=== PATIENT | male | born 1955 | race Caucasian/White ===

== ENCOUNTER 2020-10-31 09:58 | Inpatient (IN) | payer OTHER ==
[2020-10-31 10:38] LABS: Absolute Lymphocytes (CBC) 23.8 K/uL (0.7-4.9); Basophils % 0.4 % (0-1.3); Hematocrit 47.4 % (39.6-49.0); Lymphocytes % 85.4 % (15.3-44.8); MPV 10.2 fL (7.6-11.3); RBC Red Blood Cell Count 5.13 M/uL (4.33-5.43)
[2020-10-31 10:39] LABS: Protime INR 1.01
[2020-10-31 10:52] LABS: ALT/SGPT 58 U/L (12-78); AST/SGOT 35 U/L (15-37); Alkaline Phosphatase 135 U/L (45-117); BUN Blood Urea Nitrogen 22 mg/dL (7-18); Bicarbonate 22 mmol/L (21-32); Bilirubin Direct 0.1 mg/dL (0-0.2); Bilirubin Total 0.7 mg/dL (0.2-1.0); Glucose Level 318 mg/dL (74-106); Magnesium 2.1 mg/dL (1.8-2.4); NT PRO-BNP 64 pg/mL (<125); Potassium 4.4 mmol/L (3.5-5.1); Protein, Total 7.9 g/dL (6.4-8.2); Sodium Level 136 mmol/L (136-145); Troponin (Emerg Dept Use Only) < 0.02 ng/mL (0.0-0.045)
[2020-10-31] MEDS ORDERED: CLOPIDOGREL 75 MG TABLET ONE (11:00)
[2020-10-31] MEDS ORDERED: ASPIRIN 81 MG CHEWABLE TABLET ONE (11:00)
[2020-10-31] MEDS ORDERED: FENTANYL CITR 100 MCG/2 ML ONE (11:02)
[2020-10-31] MEDS ORDERED: ONDANSETRON 4 MG/2 ML VIAL ONE (11:02)
--- NOTE | 2020-10-31 11:31 | RAD REPORT ---
EXAM DESCRIPTION: Anitha Single View10/31/2020 11:16 am CLINICAL HISTORY: Chest pain COMPARISON: none FINDINGS: The lungs appear clear of acute infiltrate. The heart is normal size IMPRESSION: No acute abnormalities displayed
[2020-10-31 11:48] LABS: Blood Morphology Comment NOT SEEN (NOT SEEN); Platelet Estimate ADEQ
[2020-10-31] MEDS ORDERED: NITROGLYCERIN 1 GM PKT TD ONE (11:49)
--- NOTE | 2020-10-31 13:22 | ER ---
Nurse's Notes [facility] Name: Anant Torres Age: 65 yrs Sex: Male : 1955 Arrival Date: 10/31/2020 Time: 10:01 Bed 8 Private MD: Diagnosis: Unstable angina;Chest pain on breathing Presentation: 10/31 10:02 Chief complaint: Patient states: L sided CP for 1 week. Reports SOB. No fever. ll1 Coronavirus screen: Client denies travel out of the [place] in the last 14 days. difficulty breathing, Client presents with at least one sign or symptom that may indicate coronavirus-19. Standard/surgical mask placed on the client. Ebola Screen: Patient denies travel to an Ebola-affected area in the 21 days before illness onset. Initial Sepsis Screen: Does the patient meet any 2 criteria? HR > 90 bpm. No. Patient's initial sepsis screen is negative. Does the patient have a suspected source of infection? Yes: Productive cough/pneumonia. Risk Assessment: Do you want to hurt yourself or someone else? Patient reports no desire to harm self or others. Onset of symptoms was October 24, 2020. 10:02 Method Of Arrival: Wheelchair ll1 10:02 Acuity: RANDELL 3 ll1 Historical: - Allergies: 10:04 Morphine; ll1 - Home Meds: 10:15 None [Active]; aa5 - PMHx: 10:04 Hypertension; COPD; heart disease; PTSD; ll1 10:15 Diabetes; aa5 - PSHx: 10:15 Heart stents; aa5 - Immunization history:: Adult Immunizations up to date. - Social history:: Smoking status: Patient/guardian denies using tobacco, the patient reports quitting approximately 15 years ago. Screenin:02 Abuse screen: Denies threats or abuse. Nutritional screening: No deficits noted. aa5 Tuberculosis screening: No symptoms or risk factors identified. Fall Risk IV access (20 points). Total Deleon Fall Scale indicates No Risk (0-24 pts). Assessment: 10:10 General: Appears comfortable, Behavior is calm, cooperative. Pain: Complains of pain in aa5 mid-sternal area Pain does not radiate. Pain currently is 7 out of 10 on a pain scale. Quality of pain is described as pressure, Pain began 1 week ago Is continuous. Neuro: Level of Consciousness is awake, alert, obeys commands, Oriented to person, place, time, situation. Cardiovascular: Reports chest pain, Reports baseline SOB, Hx of COPD Heart tones S1 S2 present Rhythm is regular. Respiratory: Airway is patent Respiratory effort is even, unlabored, Respiratory pattern is regular, symmetrical, Breath sounds are clear bilaterally. Denies cough. GI: Abdomen is round. : No signs and/or symptoms were reported regarding the genitourinary system. EENT: No signs and/or symptoms were reported regarding the EENT system. Derm: Skin is pink, warm \T\ dry. Musculoskeletal: Range of motion: intact in all extremities. 10:58 Reassessment: x-ray at bedside . aa5 11:30 Reassessment: Pt reports symptoms have not improved now c/o pain to left arm, MD was aa5 notified. . 12:00 Reassessment: Patient is alert, oriented x 3, equal unlabored respirations, skin aa5 warm/dry/pink. Patient states symptoms have not improved. 12:00 Pain: Pain currently is 10 out of 10 on a pain scale. aa5 14:00 Reassessment: Patient is alert, oriented x 3, equal unlabored respirations, skin aa5 warm/dry/pink. Patient states feeling better. Patient states symptoms have improved. Pain: Pain currently is 3 out of 10 on a pain scale. 15:00 Reassessment: Pt resting in bed with eyes closed, respirations even and unlabored, skin aa5 is pink/warm/dry. . 16:40 Reassessment: Patient is alert, oriented x 3, equal unlabored respirations, skin aa5 warm/dry/pink. Vital Signs: 10:02 BP 149 / 101; Pulse 96; Resp 20; Temp 97.6; Pulse Ox 96% on R/A; Pain 7/10; ll1 10:55 BP 142 / 100; Pulse 96; Resp 18 S; Temp 98.3(O); Pulse Ox 97% on R/A; mh5 11:32 BP 146 / 98; Pulse 89; Resp 20 S; Pulse Ox 93% on R/A; aa5 12:03 BP 131 / 95; Pulse 88; Resp 16; Temp 98.0; Pulse Ox 91% on 2 lpm NC; mh5 12:51 BP 126 / 91; Pulse 93; Resp 15; Temp 98.0(O); Pulse Ox 93% on 2 lpm NC; mh5 14:00 BP 128 / 91; Pulse 93; Resp 14; Pulse Ox 93% on 2 lpm NC; sv 15:30 BP 131 / 99; Pulse 98; Resp 14 S; Temp 98.0(TE); Pulse Ox 92% on 2 lpm NC; aa5 ED Course: 10:01 Patient arrived in ED. ds1 10:02 Martine Garcia, STEPHEN is Primary Nurse. aa5 10:02 Arm band placed on Patient placed in an exam room, on a stretcher. ll1 10:04 Triage completed. ll1 10:04 Gustavo Rangel MD is Attending Physician. kdr 10:10 Patient has correct armband on for positive identification. Placed in gown. Bed in low aa5 position. Call light in reach. Side rails up X 1. monologist on. Pulse ox on. NIBP on. 10:10 Patient maintains SpO2 saturation greater than 95% on room air. aa5 10:35 Initial lab(s) drawn, by tn, sent to lab. EKG done, by ED staff, reviewed by Gustavo Rangel MD. Inserted saline lock: 20 gauge in right antecubital area, using aseptic technique. Blood collected. 11:16 XRAY Chest (1 view) In Process Unspecified. EDMS 12:26 Troponin (emerg Dept Use Only) Sent. dh3 12:56 EKG done, by ED staff, reviewed by Gustavo Rangel MD. dh3 14:17 Moses Cordero MD is Hospitalizing Provider. kdr 16:42 No provider procedures requiring assistance completed. Patient admitted, IV remains in aa5 place. Administered Medications: 10:55 Drug: Zofran (Ondansetron) 4 mg Route: IVP; Site: right antecubital; aa5 11:05 Follow up: Response: No adverse reaction aa5 10:55 Drug: fentaNYL (PF) 25 mcg Route: IVP; Site: right antecubital; aa5 11:05 Follow up: Response: No adverse reaction aa5 10:56 Drug: Aspirin Chewable Tablet 324 mg Route: PO; aa5 11:30 Follow up: Response: No adverse reaction aa5 10:56 Drug: PlaVIX 300 mg Route: PO; aa5 11:30 Follow up: Response: No adverse reaction aa5 11:33 Drug: Nitro-Bid Ointment 2 % 1 inches Route: Transdermal; Site: anterior chest wall; aa5 Outcome: 13:22 Discharge ordered by . kdr 14:18 Decision to Hospitalize by Provider. kdr 16:41 Admitted to Tele accompanied by tech, via wheelchair, room 212, with chart, Report aa5 called to STEPHEN Rojo 16:41 Condition: stable 16:41 Instructed on the need for admit, Demonstrated understanding of instructions. 16:54 Patient left the ED. aa5 Signatures: Dispatcher [employer] EDIliana Doan RN RN Gustavo Rangel MD MD [facility] Marjorie Odom ds1 Martine Garcia RN RN 5 Trista Alvarado [facility] Tamara Varela 3 Ayala Pinzon RN RN ll1 Corrections: (The following items were deleted from the chart) 11:05 10:55 BP 142 / 100; Pulse 96bpm; Resp 18bpm; Spontaneous; Pulse Ox 97% RA; 5 5 11:05 11:02 BP 142 / 100; Pulse 91bpm; Resp 16bpm; Pulse Ox 91% RA; Temp 98.3F Oral; [place] [id number] 12:58 12:51 BP 126 / 91; Pulse 93bpm; Resp 15bpm; Pulse Ox 93% 2 lpm Nasal Cannula; [facility]
--- NOTE | 2020-10-31 13:22 | EDPHYS ---
Physician Documentation [facility] Name: Anant Torres Age: 65 yrs Sex: Male : 1955 Arrival Date: 10/31/2020 Time: 10:01 Bed 8 Private MD: ED Physician Gustavo Rangel HPI: 10/31 10:42 This 65 yrs old Male presents to ER via Wheelchair with complaints of Chest kdr Pain. 10:42 The patient or guardian reports chest pain that is located primarily in the anterior kdr chest wall, left. Onset: gradually, 5 day(s) ago. The pain radiates to the left shoulder, left neck, left jaw. Associated signs and symptoms: Pertinent positives: nausea, Pertinent negatives: cough. The chest pain is described as aching. Duration: The patient or guardian reports multiple episodes, that are intermittent, that wax and wane, with no pattern. Severity of pain: At its worst the pain was moderate severe just prior to arrival. The patient has not experienced similar symptoms in the past. The patient has not recently seen a physician. Historical: - Allergies: 10:04 Morphine; ll1 - Home Meds: 10:15 None [Active]; aa5 - PMHx: 10:04 Hypertension; COPD; heart disease; PTSD; ll1 10:15 Diabetes; aa5 - PSHx: 10:15 Heart stents; aa5 - Immunization history:: Adult Immunizations up to date. - Social history:: Smoking status: Patient/guardian denies using tobacco, the patient reports quitting approximately 15 years ago. ROS: 10:42 Constitutional: Negative for fever, chills, and weight loss, Eyes: Negative for injury, kdr pain, redness, and discharge, ENT: Negative for injury, pain, and discharge, Neck: Negative for injury, pain, and swelling, Respiratory: Negative for shortness of breath, cough, wheezing, and pleuritic chest pain, Abdomen/GI: Negative for abdominal pain, nausea, vomiting, diarrhea, and constipation, Back: Negative for injury and pain, : Negative for injury, bleeding, discharge, and swelling, MS/Extremity: Negative for injury and deformity, Skin: Negative for injury, rash, and discoloration, Neuro: Negative for headache, weakness, numbness, tingling, and seizure activity. Psych: Negative for depression, anxiety, suicide ideation, homicidal ideation, and hallucinations, Allergy/Immunology: Negative for hives, rash, and allergies, Endocrine: Negative for neck swelling, polydipsia, polyuria, polyphagia, and marked weight changes, Hematologic/Lymphatic: Negative for swollen nodes, abnormal bleeding, and unusual bruising. 10:42 Cardiovascular: Positive for chest pain, Negative for edema, orthopnea, palpitations, paroxysmal nocturnal dyspnea. Exam: 10:16 ECG was reviewed by the Attending Physician. kdr 10:42 Constitutional: This is a well developed, well nourished patient who is awake, alert, kdr and in no acute distress. Head/Face: Normocephalic, atraumatic. Eyes: Pupils equal round and reactive to light, extra-ocular motions intact. Lids and lashes normal. Conjunctiva and sclera are non-icteric and not injected. Cornea within normal limits. Periorbital areas with no swelling, redness, or edema. Neck: Trachea midline, no thyromegaly or masses palpated, and no cervical lymphadenopathy. Supple, full range of motion without nuchal rigidity, or vertebral point tenderness. No Meningismus. Chest/axilla: Normal chest wall appearance and motion. Nontender with no deformity. No lesions are appreciated. Cardiovascular: Regular rate and rhythm with a normal S1 and S2. No gallops, murmurs, or rubs. Normal PMI, no JVD. No pulse deficits. Respiratory: Lungs have equal breath sounds bilaterally, clear to auscultation and percussion. No rales, rhonchi or wheezes noted. No increased work of breathing, no retractions or nasal flaring. Back: No spinal tenderness. No costovertebral tenderness. Full range of motion. Skin: Warm, dry with normal turgor. Normal color with no rashes, no lesions, and no evidence of cellulitis. MS/ Extremity: Pulses equal, no cyanosis. Neurovascular intact. Full, normal range of motion. Neuro: Awake and alert, GCS 15, oriented to person, place, time, and situation. Cranial nerves II-XII grossly intact. Motor strength 5/5 in all extremities. Sensory grossly intact. Cerebellar exam normal. Normal gait. Psych: Awake, alert, with orientation to person, place and time. Behavior, mood, and affect are within normal limits. 10:42 Abdomen/GI: Inspection: obese Vital Signs: 10:02 BP 149 / 101; Pulse 96; Resp 20; Temp 97.6; Pulse Ox 96% on R/A; Pain 7/10; ll1 10:55 BP 142 / 100; Pulse 96; Resp 18 S; Temp 98.3(O); Pulse Ox 97% on R/A; mh5 11:32 BP 146 / 98; Pulse 89; Resp 20 S; Pulse Ox 93% on R/A; aa5 12:03 BP 131 / 95; Pulse 88; Resp 16; Temp 98.0; Pulse Ox 91% on 2 lpm NC; mh5 12:51 BP 126 / 91; Pulse 93; Resp 15; Temp 98.0(O); Pulse Ox 93% on 2 lpm NC; mh5 14:00 BP 128 / 91; Pulse 93; Resp 14; Pulse Ox 93% on 2 lpm NC; sv 15:30 BP 131 / 99; Pulse 98; Resp 14 S; Temp 98.0(TE); Pulse Ox 92% on 2 lpm NC; aa5 MDM: 13:22 Patient medically screened. kdr 13:22 Data reviewed: vital signs, nurses notes, lab test result(s), EKG, radiologic studies. kdr Counseling: I had a detailed discussion with the patient and/or guardian regarding: the historical points, exam findings, and any diagnostic results supporting the discharge/admit diagnosis, lab results, radiology results, the need for outpatient follow up. 14:19 ED course: The patient was stable in the ED. Despite two sets of negative enzymes, the [facility] patient pain was improving with NTG - will admit for r/o. 10/31 10:06 Order name: Basic Metabolic Panel; Complete Time: 11: [facility] 10/31 10:06 Order name: CBC with Diff; Complete Time: 13:17 [facility] 10/31 10:06 Order name: LFT's; Complete Time: : [facility] 10/31 10:06 Order name: Magnesium; Complete Time: : [facility] 10/31 10:06 Order name: NT PRO-BNP; Complete Time: 11: [facility] 10/31 10:06 Order name: PT-INR; Complete Time: : [facility] 10/31 10:06 Order name: Troponin (emerg Dept Use Only); Complete Time: : [facility] 10/31 10:51 Order name: Manual Differential; Complete Time: 13:17 EDMS 10/31 12:06 Order name: Troponin (emerg Dept Use Only); Complete Time: 13:17 kdr 10/31 14:11 Order name: Basic Metabolic Panel EDAR 10/31 14:11 Order name: Basic Metabolic Panel EDAR 10/31 14:11 Order name: CBC with Automated Diff EDMS 10/31 14:11 Order name: CBC with Automated Diff EDMS 10/31 14:11 Order name: Lipid Profile EDAR 10/31 10:06 Order name: XRAY Chest (1 view); Complete Time: 13:17 kdr 10/31 10:06 Order name: EKG; Complete Time: 10:07 kdr 10/31 14:11 Order name: CONS Physician Consult EDAR 10/31 14:11 Order name: Heart Healthy EDAR 10/31 14:11 Order name: Echo with Doppler EDAR 10/31 14:11 Order name: Lipid Profile EDAR 10/31 14:11 Order name: Troponin I EDAR 10/31 14:11 Order name: Troponin I EDAR 10/31 14:11 Order name: Troponin I EDAR 10/31 14:13 Order name: COVID-19 hb 10/31 15:50 Order name: SARS-COV-2 RT PCR EDAR 10/31 10:06 Order name: Cardiac monitoring; Complete Time: 10:34 kdr 10/31 10:06 Order name: EKG - Nurse/Tech; Complete Time: 10:34 kdr 10/31 10:06 Order name: IV Saline Lock; Complete Time: 10:34 [facility] 10/31 10:06 Order name: Labs collected and sent; Complete Time: 10:34 kdr 10/31 10:06 Order name: O2 Per Protocol; Complete Time: 10:34 kdr 10/31 10:06 Order name: O2 Sat Monitoring; Complete Time: 10:35 kdr 10/31 12:06 Order name: EKG - Nurse/Tech; Complete Time: 12:57 kdr 10/31 14:11 Order name: EKG Electrocardiogram EDAR 10/31 14:11 Order name: EKG Electrocardiogram EDAR 10/31 14:34 Order name: Diet Ada 1800 Xavi; Complete Time: 14:34 aa5 EC:40 Rate is 87 beats/min. Rhythm is regular, Normal Sinus Rhythm with No ectopy. QRS [place] kdr is Normal. NC interval is normal. QRS interval is normal. Clinical impression: NSR w/ Non-specific ST/T Changes. 13:19 Rate is 90 beats/min. Rhythm is regular, Sinus Rhythm with No ectopy. QRS [place] is kdr Normal. NC interval is normal. QRS interval is normal. QT interval is normal. Clinical impression: NSR w/ Non-specific ST/T Changes and No significant change from first EKG. Administered Medications: 10:55 Drug: Zofran (Ondansetron) 4 mg Route: IVP; Site: right antecubital; aa5 11:05 Follow up: Response: No adverse reaction aa5 10:55 Drug: fentaNYL (PF) 25 mcg Route: IVP; Site: right antecubital; aa5 11:05 Follow up: Response: No adverse reaction aa5 10:56 Drug: Aspirin Chewable Tablet 324 mg Route: PO; aa5 11:30 Follow up: Response: No adverse reaction aa5 10:56 Drug: PlaVIX 300 mg Route: PO; aa5 11:30 Follow up: Response: No adverse reaction aa5 11:33 Drug: Nitro-Bid Ointment 2 % 1 inches Route: Transdermal; Site: anterior chest wall; aa5 Disposition: 10/31/20 14:18 Hospitalization ordered by Moses Cordero for Observation. Preliminary diagnosis are Unstable angina, Chest pain on breathing. - Bed requested for Telemetry/MedSurg (observation). - Status is Observation. aa5 - Condition is Fair. - Problem is new. - Symptoms have improved. Signatures: Dispatcher [employer] EDMS Gustavo Rangel MD MD kdr Martine Garcia, RN RN aa5 Milvia Youngblood Lynsay, RN RN ll1 Corrections: (The following items were deleted from the chart) 14:14 13:22 10/31/2020 13:22 Discharged to Home. Impression: Chest pain, unspecified. kdr Condition is Fair. Forms are Medication Reconciliation Form, Thank You Letter, Antibiotic Education, Prescription Opioid Use. Follow up: Private Physician; When: 2 - 3 days; Reason: If symptoms return, Further diagnostic work-up, Recheck today's complaints, Continuance of care, Re-evaluation by your physician. Problem is an ongoing problem. Symptoms have improved. kdr 16:07 14:18 Hospitalization Ordered by Moses Cordero MD for Observation. Preliminary eb diagnosis is Unstable angina; Chest pain on breathing. Bed requested for Telemetry/MedSurg (observation). Status is Observation. Condition is Fair. Problem is new. Symptoms have improved. kdr 16:54 16:07 10/31/2020 14:18 Hospitalization Ordered by Moses Cordero MD for Observation. aa5 Preliminary diagnosis is Unstable angina; Chest pain on breathing. Bed requested for Telemetry/MedSurg (observation). Status is Observation. Condition is Fair. Problem is new. Symptoms have improved. eb
[2020-10-31] MEDS ORDERED: MORPHINE 4 MG/ML SYR IV PRN (14:07)
[2020-10-31 17:05] VITALS: BMI 32.1
[2020-10-31] MEDS: ENOXAPARIN 30 MG/0.3 ML SQ SCH (17:26)
[2020-10-31] MEDS: ACETAMINOPHEN 500 MG TAB PO PRN (18:52)
[2020-10-31] MEDS ORDERED: INFLUENZA VACCINE (for 3y+) 0.5 ML DOSE IMVAC ONE (20:00)
[2020-10-31] MEDS: FENTANYL CITR 100 MCG/2 ML IV PRN ×2 (20:12→23:43)
[2020-10-31] MEDS ORDERED: D50W 25 GM/50 ML SYRINGE IV PRN (20:45)
[2020-10-31] MEDS ORDERED: GLUCAGON 1 MG/VIAL IM PRN (20:45)
[2020-10-31] MEDS: METOPROLOL TAR 50 MG TAB PO SCH (21:00)
[2020-10-31] MEDS: INSULIN -REGULAR HUMAN 50 UNIT/0.5 ML ML SQ SCH (21:43)
[2020-10-31] MEDS: ALPRAZOLAM 0.25 MG TABLET PO PRN (21:43)
[2020-10-31] MEDS: ATORVASTATIN 20 MG TAB PO SCH (21:44)
[2020-11-01 05:13] LABS: Absolute Lymphocytes (CBC) 22.3 K/uL (0.7-4.9); Basophils % 0.3 % (0-1.3); Lymphocytes % 85.7 % (15.3-44.8); RBC Red Blood Cell Count 4.91 M/uL (4.33-5.43)
[2020-11-01 05:41] LABS: BUN Blood Urea Nitrogen 21 mg/dL (7-18); Bicarbonate 25 mmol/L (21-32); Glucose Level 258 mg/dL (74-106); HDL Cholesterol 19 mg/dL (40-60); Sodium Level 137 mmol/L (136-145); Troponin I < 0.02 ng/mL (0.0-0.045)
[2020-11-01 05:42] LABS: Potassium 4.5 mmol/L (3.5-5.1)
[2020-11-01 05:52] LABS: LDL, Direct 76 mg/dL (100-129)
[2020-11-01] MEDS: ENOXAPARIN 30 MG/0.3 ML SQ SCH (08:58)
[2020-11-01] MEDS: INSULIN -REGULAR HUMAN 50 UNIT/0.5 ML ML SQ SCH ×4 (08:58→20:31)
[2020-11-01] MEDS: ASPIRIN EC 81 MG TAB PO SCH (08:58)
[2020-11-01] MEDS: METOPROLOL TAR 50 MG TAB PO SCH ×2 (08:58→20:32)
--- NOTE | 2020-11-01 09:28 | P.HP ---
Certification for Inpatient Patient admitted to: Observation With expected LOS: <2 Midnights Patient will require the following post-hospital care: None Practitioner: I am a practitioner with admitting privileges, knowledge of patient current condition, hospital course, and medical plan of care. Services: Services provided to patient in accordance with Admission requirements found in Title 42 Section 412.3 of the Code of Federal Regulations Patient History Date of Service: 10/31/20 Reason for admission: Chest pain rule out acute coronary syndrome History of Present Illness: Patient is a 65-year-old gentleman who has had some chest discomfort over the last week. Patient is pain was mainly over the sternal region with no significant radiation. Patient has been having some pain whenever he moves the left arm. He was concerned because he has multiple risk factors. In the emergency room he had an EKG and troponins which was negative. Decision was made to admit the patient to the hospital for observation. Patient's initial troponins are negative and repeat are pending. Will also check the lipid profile. If patient's workup is negative he will need outpatient follow-up in 1-2 weeks. Allergies morphine Allergy (Verified 10/31/20 17:24) Itching/Hives/Rash Home Medications: NK [No Home Meds] 10/31/20 - Past Medical/Surgical History Has patient received pneumonia vaccine in the past: Yes Diabetic: Yes -: Coronary artery disease -: Type 2 diabetes -: COPD -: HTN -: PTSD -: Appendectomy -: Facial Sx -: Right leg- [place] -: Coronary artery stent placement - Family History Father Family History: Reviewed- Non-Contributory - Social History Smoking Status: Former smoker Alcohol use: Yes CD- Drugs: No Caffeine use: Yes Place of Residence: Home Review of Systems 10-point ROS is otherwise unremarkable Physical Examination - Vital Signs Temperature: 97.3 F Blood Pressure: 119/71 Pulse: 87 Respirations: 18 Pulse Ox (%): 95 - Physical Exam General: Alert, In no apparent distress, Oriented x3 HEENT: Atraumatic, PERRLA, Mucous membr. moist/pink, EOMI, Sclerae nonicteric Neck: Supple, 2+ carotid pulse no bruit, No LAD, Without JVD or thyroid abnormality Respiratory: Clear to auscultation bilaterally, Normal air movement Cardiovascular: Regular rate/rhythm, Normal S1 S2, No murmurs Gastrointestinal: Normal bowel sounds, Soft and benign, Non-distended, No tenderness Musculoskeletal: No clubbing, No swelling, No tenderness Integumentary: No rashes Neurological: Normal gait, Normal speech, Normal strength at 5/5 x4 extr, Normal tone, Normal affect Lymphatics: No axilla or inguinal lymphadenopathy - Studies Laboratory Data (last 24 hrs) 10/31/20 10:21: PT 11.9, INR 1.01 10/31/20 10:21: WBC 27.9 H*, Hgb 15.6, Hct 47.4, Plt Count 115 L 10/31/20 10:21: Sodium 136, Potassium 4.4, BUN 22 H, Creatinine 1.18, Glucose 318 H, Magnesium 2.1, Total Bilirubin 0.7, AST 35, ALT 58, Alkaline Phosphatase 135 H Assessment & Plan - Problems (Diagnosis) (1) Chest pain, rule out acute myocardial infarction Current Visit: Yes Status: Acute (2) Hypertension Current Visit: Yes Status: Acute (3) COPD (chronic obstructive pulmonary disease) Current Visit: Yes Status: Acute (4) DM2 (diabetes mellitus, type 2) Current Visit: Yes Status: Acute (5) PTSD (post-traumatic stress disorder) Current Visit: Yes Status: Acute - Plan 1. Serial troponins and EKG 2. Appreciate Cardiology consultation 3. Outpatient Cardiology workup; Echocardiogram and stress test if cardiology is agreeable 4. Anti-platelet therapy, anti coagulation, beta-adrian, statin, and O2 as needed 5. IV morphine for pain 6. Nitro p.r.n. 7. GI and DVT prophylaxis Discharge Plan: Home Plan to discharge in: Greater than 2 days - Advance Directives Does patient have a Living Will: No Does patient have a Durable POA for Healthcare: No - Code Status/Comfort Care Code Status Assessed: Yes Code Status: Full Code Critical Care: No Time Spent Managing PTS Care (In Minutes): 45
--- NOTE | 2020-11-01 09:42 | P.DS ---
Discharge Date: 11/01/20 Disposition: ROUTINE DISCHARGE Discharge Condition: GOOD Reason for Admission: Chest pain rule out acute coronary syndrome - Problems (1) Chest pain, rule out acute myocardial infarction Current Visit: Yes Status: Acute (2) Hypertension Current Visit: Yes Status: Acute (3) COPD (chronic obstructive pulmonary disease) Current Visit: Yes Status: Acute (4) DM2 (diabetes mellitus, type 2) Current Visit: Yes Status: Acute (5) PTSD (post-traumatic stress disorder) Current Visit: Yes Status: Acute Brief History of Present Illness: Patient is a 65-year-old gentleman who has had some chest discomfort over the last week. Patient is pain was mainly over the sternal region with no significant radiation. Patient has been having some pain whenever he moves the left arm. He was concerned because he has multiple risk factors. In the emergency room he had an EKG and troponins which was negative. Decision was made to admit the patient to the hospital for observation. Patient's initial troponins are negative and repeat are pending. Will also check the lipid profile. If patient's workup is negative he will need outpatient follow-up in 1-2 weeks. Vital Signs/Physical Exam: Temp Pulse Resp BP Pulse Ox 97.3 F 87 18 119/71 95 11/01/20 09:28 11/01/20 09:28 11/01/20 09:28 11/01/20 09:28 11/01/20 09:28 Laboratory Data at Discharge: WBC 26.0 K/uL (4.3-10.9) H* 11/01/20 04:54 Hgb 15.2 g/dL (13.6-17.9) 11/01/20 04:54 Hct 45.0 % (39.6-49.0) 11/01/20 04:54 Plt Count 106 K/uL (152-406) L 11/01/20 04:54 PT 11.9 SECONDS (9.5-12.5) 10/31/20 10:21 INR 1.01 10/31/20 10:21 Sodium 137 mmol/L (136-145) 11/01/20 04:48 Potassium 4.5 mmol/L (3.5-5.1) 11/01/20 04:48 BUN 21 mg/dL (7-18) H 11/01/20 04:48 Creatinine 1.11 mg/dL (0.55-1.3) 11/01/20 04:48 Glucose 258 mg/dL (74-106) H 11/01/20 04:48 Magnesium 2.1 mg/dL (1.8-2.4) 10/31/20 10:21 Total Bilirubin 0.7 mg/dL (0.2-1.0) 10/31/20 10:21 AST 35 U/L (15-37) 10/31/20 10:21 ALT 58 U/L (12-78) 10/31/20 10:21 Alkaline Phosphatase 135 U/L (45-117) H 10/31/20 10:21 Troponin I < 0.02 ng/mL (0.0-0.045) 11/01/20 04:48 Triglycerides Cancelled 11/01/20 05:00 Cholesterol Cancelled 11/01/20 05:00 LDL Cholesterol Direct 76 mg/dL (100-129) L 11/01/20 04:48 HDL Cholesterol Cancelled 11/01/20 05:00 Cholesterol/HDL Ratio Cancelled 11/01/20 05:00 Home Medications: ALPRAZolam [Xanax*] 0.25 mg PO TID PRN #30 tab 11/01/20 Atorvastatin Calcium [Lipitor*] 40 mg PO BEDTIME #30 tab 11/01/20 Metoprolol Tartrate [Lopressor] 25 mg PO BID #60 tab 11/01/20 New Medications: Atorvastatin Calcium [Lipitor*] 40 mg PO BEDTIME #30 tab Metoprolol Tartrate [Lopressor] 25 mg PO BID #60 tab ALPRAZolam [Xanax*] 0.25 mg PO TID PRN #30 tab PRN Reason: Anxiety Patient Discharge Instructions: OK TO DC IV AND DC HOME. FOLLOW-UP WITH PRIMARY CARE PROVIDER IN 1-2 WEEKS. FOLLOW-UP WITH CARDIOLOGY IN 1-2 WEEKS. RETURN TO THE ER IF symptoms worsen. CALL or TEXT DR. TREADWELL AT [phone] IF ANY QUESTIONS REGARDING HOSPITAL STAY. PLEASE CALL THE FLOOR AT [phone] IF ANY MEDICATION OR NURSING QUESTIONS. Diet: AHA Activity: Fall precautions Followup: Benji Claros MD [Primary Care Provider] -
[2020-11-01] MEDS: ACETAMINOPHEN 500 MG TAB PO PRN (12:15)
[2020-11-01] MEDS ORDERED: GLUCAGON 1 MG/VIAL IM PRN (13:27)
[2020-11-01] MEDS ORDERED: D50W 25 GM/50 ML SYRINGE IV PRN (13:27)
[2020-11-01] MEDS ORDERED: CLOPIDOGREL 75 MG TABLET PO ONE (13:30)
--- NOTE | 2020-11-01 13:31 | EKG ---
Test Date: 2020-10-31 Test Time: 10:11:10 Post Anesthesia Care Unit Nurse: DEVIN MEASUREMENT RESULTS: Intervals: Rate: 87 [place]: 164 QRSD: 102 QT: 386 QTc: 464 Hester: P: 62 KY: 164 QRS: 6 T: 72 INTERPRETIVE STATEMENTS: Normal sinus rhythm Low voltage QRS Inferior infarct, age undetermined Anterolateral infarct, age undetermined Abnormal ECG No previous ECG available for comparison Electronically Signed On 11-01-20 13:28:25 KEYBOARD INSTRUMENT REPAIRER by Jovany Lai
--- NOTE | 2020-11-01 16:59 | CON ---
Date of Consultation: 10/31/[address] Cordero on 10/31/2020. I saw the patient 11/01/2020. Reason For Consultation: Chest pain. History Of Present Illness: Mr. Torres is a 65-year-old male who has had coronary artery disease sta tus post stent twice, one of them was in [place], [place]. He could not recall where he had the other one . He is a retired [place] . He has a history of diabetes as well, COPD, hypertension, and po sttraumatic stress disorder. He came in with substernal chest pressure going to both arms and back w ith shortness of breath and diaphoresis. No nausea, vomiting, PND, orthopnea, pedal edema, palpitati on, syncope, fever, or chills. He stated that his symptoms are identical to his previous heart attac k. He apparently was told during his last catheterization 3 years ago that he had about 40% to 50% s tenosis in other vessels. Last time he saw a systems software engineer was 3 years ago. Allergies: HE IS ALLERGIC TO MORPHINE AND METFORMIN. Review of Systems: Negative. Social History: Negative. Family History: Noncontributory. Medications: At home include Xanax, Lipitor, metoprolol, but according to the , he is not taking any medication. He just on [id number] insulin of some kind. Physical Examination: Vital Signs: Stable. He was afebrile. HEENT: Negative. Neck: Supple without any bruit, lymphadenopathy, JVD, or thyromegaly. Chest: Clear to auscultation and percussion. Cardiac: Regular rhythm and rate. No murmurs, gallops, or rubs. Abdomen: Benign. Extremities: No clubbing, cyanosis, or edema. Diagnostic Data: Showed a glucose of 340. White count of 20,000. EKG was nonspecific. Creatinine is normal. Chest x-ray is negative. Impression And Plan: 1.Unstable angina in a patient with history of coronary artery disease, status post multiple stents. 2.Diabetes. He needs to be on insulin and maybe glyburide. He does not like metformin. He reacts to it. 3.Chronic obstructive pulmonary disease. 4.Hypertension. 5.Posttraumatic stress disorder. 6.Elevated white count. I think we need to check a hemoglobin A1c. We need to continue his present regimen right now. He sh ould be on aspirin, statin, beta-adrian, and Lovenox. I will plan a heart catheterization on 2020. The patient understands the risk and the benefits of the procedure and he agrees to proceed. FÁTIMA/CLIFFORD Voice ID: [id number] Report ID: [id number]
[2020-11-01] MEDS: ENOXAPARIN 100 MG/ML SYR SQ SCH ×2 (18:02→20:32)
[2020-11-01] MEDS: INSULIN GLARGINE 100 UNITS/ML SQ SCH (20:31)
[2020-11-01] MEDS: ATORVASTATIN 20 MG TAB PO SCH (20:32)
[2020-11-01] MEDS: FENTANYL CITR 100 MCG/2 ML IV PRN (20:46)
[2020-11-01] MEDS: GABAPENTIN 400 MG CAP PO SCH (23:10)
[2020-11-01] MEDS ORDERED: GABAPENTIN 300 MG CAP PO ONE (23:31)
[2020-11-01] MEDS: ALPRAZOLAM 0.25 MG TABLET PO PRN (23:49)
[2020-11-02 06:07] LABS: Absolute Lymphocytes (CBC) 22.5 K/uL (0.7-4.9); Basophils % 0.3 % (0-1.3); Hematocrit 44.9 % (39.6-49.0); Lymphocytes % 85.2 % (15.3-44.8); MPV 10.9 fL (7.6-11.3); RBC Red Blood Cell Count 4.89 M/uL (4.33-5.43)
[2020-11-02] MEDS: METOPROLOL TAR 50 MG TAB PO SCH ×2 (09:00→20:36)
[2020-11-02] MEDS: ENOXAPARIN 100 MG/ML SYR SQ SCH (09:55)
[2020-11-02] MEDS: ASPIRIN EC 81 MG TAB PO SCH (09:55)
[2020-11-02] MEDS: GABAPENTIN 400 MG CAP PO SCH (09:56)
[2020-11-02] MEDS: INSULIN -REGULAR HUMAN 50 UNIT/0.5 ML ML SQ SCH ×4 (09:57→20:36)
[2020-11-02] MEDS: CLOPIDOGREL 75 MG TABLET PO SCH (09:58)
[2020-11-02] MEDS: FENTANYL CITR 100 MCG/2 ML IV PRN ×2 (10:14→20:43)
[2020-11-02] MEDS ORDERED: FENTANYL CITR 100 MCG/2 ML IV ONE (12:47)
[2020-11-02] MEDS ORDERED: INSULIN GLARGINE 100 UNITS/ML SQ ONE (13:27)
[2020-11-02] MEDS: ATORVASTATIN 20 MG TAB PO SCH (20:35)
[2020-11-02] MEDS: INSULIN GLARGINE 100 UNITS/ML SQ SCH (20:36)
[2020-11-02] MEDS: ALPRAZOLAM 0.25 MG TABLET PO PRN (21:30)
[2020-11-03] MEDS: METOPROLOL TAR 50 MG TAB PO SCH (05:22)
[2020-11-03] MEDS: ASPIRIN EC 81 MG TAB PO SCH (05:22)
[2020-11-03] MEDS: CLOPIDOGREL 75 MG TABLET PO SCH (05:22)
[2020-11-03] MEDS ORDERED: HEPA 1000U/500MLS 1,000 UNIT/500 ML BAG IV ONE (07:02)
--- NOTE | 2020-11-03 07:23 | P.PN ---
Subjective Date of Service: 11/02/20 Subjective: No new changes, No C/O voiced, Improving Had a long discussion with patient and states he has had multiple injuries in combat as well as he has been exposed to Agent [place]. Did speak to him about his most likely diagnosis of CLL and he will need to follow-up with a ukrainian folk arts instructor. This can be done and I as an outpatient. He has had this elevated white count for quite a while. He has not followed up with a ukrainian folk arts instructor / oncologist as of yet. He could even do [facility] at the [facility]. Review of Systems 10-point ROS is otherwise unremarkable Physical Examination - Vital Signs Temperature: 97.5 F Blood Pressure: 124/78 Pulse: 85 Respirations: 18 Pulse Ox (%): 93 - Physical Exam General: Alert, In no apparent distress, Oriented x3 Respiratory: Clear to auscultation bilaterally, Normal air movement Cardiovascular: Regular rate/rhythm, Normal S1 S2, Systolic murmur Gastrointestinal: Normal bowel sounds, Soft and benign, Non-distended, No tenderness Musculoskeletal: No clubbing, No swelling, No tenderness Neurological: Normal speech, Normal strength at 5/5 x4 extr, Normal tone, Sensation intact, Cranial nerves 3-12 intact - Studies Medications List Reviewed: Yes Assessment & Plan - Problems (Diagnosis) (1) Unstable angina Current Visit: Yes Status: Acute (2) Chest pain, rule out acute myocardial infarction Current Visit: Yes Status: Acute (3) Hypertension Current Visit: Yes Status: Acute (4) COPD (chronic obstructive pulmonary disease) Current Visit: Yes Status: Acute (5) DM2 (diabetes mellitus, type 2) Current Visit: Yes Status: Acute (6) PTSD (post-traumatic stress disorder) Current Visit: Yes Status: Acute (7) CLL (chronic lymphocytic leukemia) Current Visit: Yes Status: Acute - Plan 1. Serial troponins and EKG 2. Appreciate Cardiology consultation 3. Heart cath tuesday; still with significant CP at rest and history of 5 stents in the past; relieved with nitro 4. Anti-platelet therapy, anti coagulation, beta-adrian, statin, and O2 as needed 5. IV morphine for pain 6. Nitro p.r.n. 7. GI and DVT prophylaxis Discharge Plan: Home Plan to discharge in: Greater than 2 days - Advance Directives Does patient have a Living Will: No Does patient have a Durable POA for Healthcare: No - Code Status/Comfort Care Code Status: Full Code Critical Care: No Time Spent Managing PTS Care (In Minutes): 35
--- NOTE | 2020-11-03 07:25 | P.PN ---
Subjective Date of Service: 11/01/20 Spoke with cardiology and with patient's numerous risk factors and his persistent chest pain their concern is that he may be having unstable angina and they want to continue him on anti coagulation and anti-platelet therapy pending cardiac catheterization Tuesday. Review of Systems 10-point ROS is otherwise unremarkable Physical Examination - Vital Signs Temperature: 97.5 F Blood Pressure: 124/78 Pulse: 85 Respirations: 18 Pulse Ox (%): 93 - Physical Exam General: Alert, In no apparent distress, Oriented x3 HEENT: Atraumatic, PERRLA, EOMI Neck: Supple, JVD not distended Respiratory: Clear to auscultation bilaterally, Normal air movement Cardiovascular: Regular rate/rhythm, Normal S1 S2 Gastrointestinal: Normal bowel sounds, No tenderness Musculoskeletal: No tenderness Integumentary: No rashes Neurological: Normal speech, Normal tone, Normal affect Lymphatics: No axilla or inguinal lymphadenopathy - Studies Medications List Reviewed: Yes Assessment & Plan - Problems (Diagnosis) (1) Unstable angina Current Visit: Yes Status: Acute (2) Chest pain, rule out acute myocardial infarction Current Visit: Yes Status: Acute (3) Hypertension Current Visit: Yes Status: Acute (4) COPD (chronic obstructive pulmonary disease) Current Visit: Yes Status: Acute (5) DM2 (diabetes mellitus, type 2) Current Visit: Yes Status: Acute (6) PTSD (post-traumatic stress disorder) Current Visit: Yes Status: Acute (7) CLL (chronic lymphocytic leukemia) Current Visit: Yes Status: Acute - Plan 1. Further evaluation per cardiology with concern that patient's symptoms are suggestive of unstable angina. Will need heart catheterization Tuesday. 2. Appreciate Cardiology consultation 3. Heart cath tuesday; 4. Anti-platelet therapy, anti coagulation, beta-adrian, statin, and O2 as needed 5. IV morphine for pain 6. Nitro p.r.n. 7. GI and DVT prophylaxis Discharge Plan: Home Plan to discharge in: Greater than 2 days - Advance Directives Does patient have a Living Will: No Does patient have a Durable POA for Healthcare: No - Code Status/Comfort Care Code Status: Full Code Critical Care: No Time Spent Managing PTS Care (In Minutes): 45
[2020-11-03] MEDS: INSULIN -REGULAR HUMAN 50 UNIT/0.5 ML ML SQ SCH ×3 (07:30→17:55)
[2020-11-03] MEDS ORDERED: NA CHLORIDE 0.9% 500 ML ONE (08:22)
[2020-11-03] MEDS ORDERED: CYANOCOBALAMIN 1,000 MCG TAB PO SCH (09:00)
[2020-11-03] MEDS ORDERED: DOCOSAHEXANOIC AC/EPA 1000 MG PO SCH (09:00)
[2020-11-03] MEDS ORDERED: NA CHLORIDE 0.9% 50 ML ONE (09:26)
[2020-11-03] MEDS ORDERED: MIDAZOLAM HCL 5 MG/5 ML INJ ONE (09:42)
[2020-11-03] MEDS ORDERED: NITROGLYCERIN 0.4 MG/TAB SL ONE (09:48)
[2020-11-03] MEDS ORDERED: HEPARIN 5000 UNIT/ML 1 ML VIAL ONE ×2 (10:00→10:02)
[2020-11-03] MEDS ORDERED: CLOPIDOGREL 75 MG TABLET ONE (10:06)
[2020-11-03] MEDS ORDERED: PRASUGREL (EFFIENT) 10 MG TAB ONE (10:06)
[2020-11-03] MEDS ORDERED: ASPIRIN 325 MG TAB ONE (10:07)
--- NOTE | 2020-11-03 10:31 | OP ---
Date of Procedure: 11/03/2020 Surgeon: Jovany Lai MD Title One Teacher: Loni Soto. The patient is admitted on 10/31/2020 with unstable angina. Has a history of coronary artery disease , brought to the slabbing machine operator today as an inpatient on 11/03/2020 for a heart catheterization. He underw ent a left heart catheterization, selective coronary arteriogram, left ventriculogram, and primary st ent of the distal RCA. Procedure In Detail: The patient was prepped and draped in the routine sterile fashion given Versed for sedation. A 6-[place] sheath was introduced in the right common femoral artery successfully using the Seldinger technique. Angiography there was normal. Angio-Seal was used to close the case. Sharon kins catheter left and right were used to do the left main and right main injection. He was found to have a patent mid to distal RCA stent with an 80% distal RCA stenosis. The circumflex had diffuse p laquing. The LAD had a patent proximal to mid LAD stent. Angiography of the left ventricle was done using the JR4 catheter. He had a normal EDP, but he had anteroapical akinesis with an ejection frac tion of 40% to 45% by angiography there. We decided to intervene with the RCA. A JR4 6-[place] guide was used to cannulate the RCA. A 0.014 [place] wire was used to cross the lesion successfully. Prim cathleen stent of the RCA was done using a 2.5 x 20 Synergy stent with 0% residual. The patient received 225 mg of Plavix. He received aspirin, and he received 10,000 units of IV heparin. There were no co mplications. Estimated Blood Loss: 5 mL. Postoperative Diagnoses: 1.Coronary artery disease status post successful stent of the distal RCA. 2.Anteroapical akinesis. 3.Ejection fraction of 40% to 45% with a normal left ventricular end-diastolic pressure. 4.Patent old proximal to mid RCA and LAD stent. Plan: For him to go home today in about 6 to 8 hours. Anesthesia: Total conscious sedation was 60 minutes. NB/MODL Voice ID: [id number] Report ID: [id number]
--- NOTE | 2020-11-03 12:58 | PN ---
Date of Progress Note: 11/02/2020 Mr. Torres had come into the hospital with unstable anginal symptoms that are fairly classic. He has ruled out for an NC. He continues to have issues with glucose. Last sugar was 369. His white coun t was 26,000. Continued to have chest pain with exertion. His telemetry remained as sinus rhythm. Hemoglobin A1c will be sent. Creatinine is stable. Plan: Plan is for a heart catheterization on 11/03/2020. This has been discussed with Mr. Torres jossy d he agrees to proceed. We will hold English Helper. FÁTIMA/CLIFFORD Voice ID: [id number] Report ID: [id number]
[2020-11-03] MEDS: GABAPENTIN 400 MG CAP PO SCH (13:27)
[2020-11-03 15:15] VITALS: O2SAT 93
--- NOTE | 2020-11-03 16:51 | P.DS ---
Admission Date: 11/02/20 Discharge Date: 11/03/20 Primary Care Provider: LAURA Disposition: ROUTINE DISCHARGE Discharge Condition: GOOD Reason for Admission: Chest pain rule out acute coronary syndrome Consultations: Cardiology-Dr. Lai Procedures: Heart Cath: Date of Procedure: 11/03/2020 Surgeon: Jovany Lai MD Metal Hanging Supervisor: Loni Soto. He was found to have a patent mid to distal RCA stent with an 80% distal RCA stenosis. The circumflex had diffuse plaquing. The LAD had a patent proximal to mid LAD stent. Angiography of the left ventricle was done using the JR4 catheter. He had a normal EDP, but he had anteroapical akinesis with an ejection fraction of 40% to 45% by angiography there. We decided to intervene with the RCA. Primary stent of the RCA was done using a 2.5 x 20 Synergy stent with 0% residual. The patient received 225 mg of Plavix. He received aspirin, and he received 10,000 units of IV heparin. There were no complications. Estimated Blood Loss: 5 mL. Postoperative Diagnoses: 1. Coronary artery disease status post successful stent of the distal RCA. 2. Anteroapical akinesis. 3. Ejection fraction of 40% to 45% with a normal left ventricular end- diastolic pressure. 4. Patent old proximal to mid RCA and LAD stent. Medical Problem List: Chest pain secondary to unstable angina status post heart catheterization requiring successful stent of the distal RCA, anterior apical akinesis, ejection fraction 40-45%, and patent pulled proximal to mid RCA and LAD stent Hypertension Diabetes mellitus type 2 with hyperglycemia COPD PTSD CLL Brief History of Present Illness: 65-year-old male presented to the emergency room with chest pain. Patient with unstable angina. Patient admitted for further evaluation and treatment. Hospital Course: Patient presented with Chest pain secondary to unstable angina. Patient was seen and evaluated by Cardiology. Cardiology recommended heart catheterization. Heart catheterization performed showed significant distal RCA disease. Stent was placed. Apical anterior akinesis was identified. Ejection fraction around 40-45%. At discharge patient will continue with aspirin 81 mg daily, metoprolol XL 25 mg daily, and Lipitor 40 mg daily as recommended by Cardiology. Recommend follow up with cardiology in 2 weeks. Patient with hypertension. Medications have been adjusted. At discharge patient will continue with metoprolol XL 25 mg daily. Recommend to monitor blood pressure daily. Patient with Diabetes mellitus type 2 with hyperglycemia. A1c 9.5. Patient is taking NPH and regular at home. Medications have been adjusted. At discharge will recommend to start Lantus 20 units subcu at night. Recommend to monitor blood sugars at least twice daily. Recommend to maintain blood sugars less than 140 fasting and less than 200 after meals. Vital Signs/Physical Exam: Temp Pulse Resp BP Pulse Ox 96.4 F L 87 18 111/64 90 L 11/03/20 12:30 11/03/20 15:09 11/03/20 15:09 11/03/20 15:11/03/20 12:30 General: Alert, In no apparent distress, Cooperative HEENT: Atraumatic Neck: Supple Respiratory: Clear to auscultation bilaterally, Normal air movement Cardiovascular: Normal pulses, Regular rate/rhythm Gastrointestinal: Normal bowel sounds, Soft and benign, Non-distended, No tenderness, No masses, No rebound, No guarding Neurological: Normal speech, Normal strength at 5/5 x4 extr, Normal tone, Normal affect Laboratory Data at Discharge: WBC 26.4 K/uL (4.3-10.9) H* 11/02/20 05:00 Hgb 15.6 g/dL (13.6-17.9) 11/02/20 05:00 Hct 44.9 % (39.6-49.0) 11/02/20 05:00 Plt Count 120 K/uL (152-406) L 11/02/20 05:00 PT 11.9 SECONDS (9.5-12.5) 10/31/20 10:21 INR 1.01 10/31/20 10:21 Sodium 137 mmol/L (136-145) 11/01/20 04:48 Potassium 4.5 mmol/L (3.5-5.1) 11/01/20 04:48 BUN 21 mg/dL (7-18) H 11/01/20 04:48 Creatinine 1.11 mg/dL (0.55-1.3) 11/01/20 04:48 Glucose 258 mg/dL (74-106) H 11/01/20 04:48 Magnesium 2.1 mg/dL (1.8-2.4) 10/31/20 10:21 Total Bilirubin 0.7 mg/dL (0.2-1.0) 10/31/20 10:21 AST 35 U/L (15-37) 10/31/20 10:21 ALT 58 U/L (12-78) 10/31/20 10:21 Alkaline Phosphatase 135 U/L (45-117) H 10/31/20 10:21 Troponin I < 0.02 ng/mL (0.0-0.045) 11/01/20 04:48 Triglycerides Cancelled 11/01/20 05:00 Cholesterol Cancelled 11/01/20 05:00 LDL Cholesterol Direct 76 mg/dL (100-129) L 11/01/20 04:48 HDL Cholesterol Cancelled 11/01/20 05:00 Cholesterol/HDL Ratio Cancelled 11/01/20 05:00 Home Medications: Cyanocobalamin (Vitamin B-12) [Vitamin B-12] 1,000 mcg PO DAILY 11/01/20 Gabapentin 1 tab PO DAILY 11/01/20 Krill/[place]-3/Dha/Epa/Lipids [[place]-3 Krill Oil 500 mg Sfgl] 1 cap PO DAILY 11/01/20 Aspirin [Aspirin EC 81 MG] 81 mg PO DAILY #90 tablet. 11/03/20 Atorvastatin Calcium [Lipitor] 40 mg PO BEDTIME #30 tab 11/03/20 Insulin Glargine,Hum.rec.anlog [Lantus Solostar] 20 unit SQ BEDTIME #1 packet 11/03/20 Metoprolol Succinate 25 mg PO DAILY #30 tab.er.24h 11/03/20 New Medications: Aspirin [Aspirin EC 81 MG] 81 mg PO DAILY #90 tablet. Insulin Glamami,Hum.rec.anlog [Lantus Solostar] 20 unit SQ BEDTIME #1 packet Atorvastatin Calcium [Lipitor] 40 mg PO BEDTIME #30 tab Metoprolol Succinate 25 mg PO DAILY #30 tab.er.24h Patient Discharge Instructions: OK TO DC IV AND DC HOME. FOLLOW-UP WITH PRIMARY CARE PROVIDER IN 1-2 WEEKS. FOLLOW-UP WITH CARDIOLOGY IN 1-2 WEEKS. RETURN TO THE ER IF symptoms worsen. CALL or TEXT DR. TREADWELL AT [phone] IF ANY QUESTIONS REGARDING HOSPITAL STAY. PLEASE CALL THE FLOOR AT [phone] IF ANY MEDICATION OR NURSING QUESTIONS. Diet: AHA Activity: Fall precautions Followup: Jovany Lai MD [ACTIVE - CAN ADMIT] - Benji Claros MD [Primary Care Provider] - Time spent managing pt's care (in minutes): 55
[2020-11-03 18:06] VITALS: BP 152/91; TEMP 97
--- NOTE | 2020-11-04 09:06 | ECHO ---
HEIGHT: 5 ft 11 in WEIGHT: 230 lb 0 oz DATE OF STUDY: 11/03/[address]: Moses Cordero MD 2-DIMENSIONAL: YES M.MODE: YES DOPPLER: YES COLOR FLOW: YES TDS: YES PORTABLE: DEFINITY: BUBBLE STUDY: DIAGNOSIS: CHEST PAIN, RULE OUT ACUTE CORNARY SYNDROME CARDIAC HISTORY: CATHERIZATION: YES SURGERY: NO PROSTHETIC VALVE: NO PACEMAKER: NO MEASUREMENTS (cm) DIASTOLIC (NORMALS) SYSTOLIC (NORMALS) IVSd 1.3 (0.6-1.2) LA Diam 3.4 (1.9-4.0) LVEF 66% LVIDd 4.1 (3.5-5.7) LVIDs 2.6 (2.0-3.5) %FS 36% LVPWd 1.3 (0.6-1.2) Ao Diam 3.4 (2.0-3.7) 2 DIMENSIONAL ASSESSMENT: POOR STUDY RIGHT ATRIUM: LEFT ATRIUM: RIGHT VENTRICLE: LEFT VENTRICLE: TRICUSPID VALVE: MITRAL VALVE: PULMONIC VALVE: AORTIC VALVE: PERICARDIAL EFFUSION: AORTIC ROOT: LEFT VENTRICULAR WALL MOTION: DOPPLER/COLOR FLOW: COMMENTS: POOR WINDOWS, LEFT VENTRICULAR EJECTION FRACTION APPEARS NORMAL BUT RECOMMEND CONTRAST STIDY TO BETTER EVALUATE. TECHNOLOGIST: FILI ACSPER
== END 2020-11-03 18:41 | disposition home or self-care (01) | DRG 247 ==
LOC: ER 09:58 → ERHOLD 14:07 → 2ND 16:40 → OBSVTOIN 11-02 09:08
PROVIDERS: ADMIT Hospitalist; ATTEND Family Medicine
PROC: 027034Z Dilation of Coronary Artery, One Artery with Drug-eluting Intraluminal Device, Percutaneous Approach (ICD-10-PCS; principal; 2020-11-03)
PROC: 4A023N7 Measurement of Cardiac Sampling and Pressure, Left Heart, Percutaneous Approach (ICD-10-PCS; 2020-11-03)
PROC: B2111ZZ Fluoroscopy of Multiple Coronary Arteries using Low Osmolar Contrast (ICD-10-PCS; 2020-11-03)
DX: I25.110 Atherosclerotic heart disease of native coronary artery with unstable angina pectoris (principal); C91.10 Chronic lymphocytic leukemia of B-cell type not having achieved remission; J44.9 Chronic obstructive pulmonary disease, unspecified; I10 Essential (primary) hypertension; E11.65 Type 2 diabetes mellitus with hyperglycemia; F43.11 Post-traumatic stress disorder, acute; Z95.5 Presence of coronary angioplasty implant and graft; Z87.891 Personal history of nicotine dependence; Z79.01 Long term (current) use of anticoagulants; Z88.5 Allergy status to narcotic agent; Z90.49 Acquired absence of other specified parts of digestive tract; Z79.4 Long term (current) use of insulin; Z79.82 Long term (current) use of aspirin; Z79.899 Other long term (current) drug therapy; Z20.822 Contact with and (suspected) exposure to COVID-19
CPT/HCPCS: 36415; 71045; 80048; 80061; 80076; 82947; 83036; 83735; 83880; 84484; 85025; 85347; 85610; 92928; 93005; 93306; 93458; 96374; 96375; 99285; C1725; C1760; C1893; J0583; J1644; J1650; J1815; J2250; J2405; J3010; J7040; U0003

== ENCOUNTER 2020-11-27 12:41 | Inpatient (IN) | payer OTHER ==
[2020-11-27 13:01] LABS: Basophils % 0.4 % (0-1.3); Hematocrit 49.4 % (39.6-49.0); Lymphocytes % 81.9 % (15.3-44.8); MPV 9.9 fL (7.6-11.3); RBC Red Blood Cell Count 5.43 M/uL (4.33-5.43)
[2020-11-27 13:03] LABS: Protime INR 1.01
[2020-11-27] MEDS ORDERED: ONDANSETRON 4 MG/2 ML VIAL ONE (13:17)
--- NOTE | 2020-11-27 13:18 | RAD REPORT ---
EXAM DESCRIPTION: RAD - Chest Single View - 11/27/2020 1:06 pm CLINICAL HISTORY: CHEST PAIN COMPARISON: Portable October 31 TECHNIQUE: AP portable chest image was obtained 11/27/2020 1:06 pm . FINDINGS: Lung volumes are very low in the patient is lordotic in positioning. No peripheral mass or consolidation seen. Cardiac silhouette is enlarged by the shallow inspiration, body habitus affects and lordotic positioning. No significant failure or volume overload identified. No measurable pleural effusion and no pneumothorax. No acute bony abnormality seen. No acute aortic findings suspected. IMPRESSION: Significantly limited portable chest without acute cardiopulmonary finding.
[2020-11-27] MEDS ORDERED: MEPERIDINE HCL 25 MG/ML SYR ONE (13:19)
[2020-11-27 13:21] LABS: ALT/SGPT 53 U/L (12-78); AST/SGOT 26 U/L (15-37); Albumin 4.4 g/dL (3.4-5.0); Alkaline Phosphatase 199 U/L (45-117); BUN Blood Urea Nitrogen 13 mg/dL (7-18); Bicarbonate 23 mmol/L (21-32); Bilirubin Direct 0.2 mg/dL (0-0.2); Bilirubin Total 0.7 mg/dL (0.2-1.0); Glucose Level 236 mg/dL (74-106); Magnesium 1.7 mg/dL (1.8-2.4); NT PRO-BNP 127 pg/mL (<125); Potassium 3.8 mmol/L (3.5-5.1); Protein, Total 8.4 g/dL (6.4-8.2); Sodium Level 135 mmol/L (136-145); Troponin (Emerg Dept Use Only) < 0.02 ng/mL (0.0-0.045)
[2020-11-27 13:31] LABS: Blood Morphology Comment NOT SEEN (NOT SEEN); Platelet Estimate ADEQ
--- NOTE | 2020-11-27 15:10 | ER ---
Nurse's Notes [facility] Name: Anant Torres Age: 65 yrs Sex: Male : 1955 Arrival Date: 11/27/2020 Time: 12:41 Bed 13 Private MD: Jovany Lai S; [place], Frank Diagnosis: Unstable angina;Chest pain, unspecified Presentation: 11/27 13:17 Chief complaint: Patient states: "chest pain X1 week , worse today.". Coronavirus jd3 screen: At this time, the client does not indicate any symptoms associated with coronavirus-19. Ebola Screen: Patient negative for fever greater than or equal to 101.5 degrees Fahrenheit, and additional compatible Ebola Virus Disease symptoms. Initial Sepsis Screen: Does the patient meet any 2 criteria? No. Patient's initial sepsis screen is negative. Does the patient have a suspected source of infection? No. Patient's initial sepsis screen is negative. Risk Assessment: Do you want to hurt yourself or someone else? Patient reports no desire to harm self or others. Onset of symptoms was November 20, 2020. 13:17 Method Of Arrival: Wheelchair jd3 13:17 Acuity: RANDELL 2 jd3 Historical: - Allergies: 13:17 Morphine; jd3 - PMHx: 13:17 COPD; Diabetes; heart disease; Hypertension; PTSD; Leukemia; jd3 - PSHx: 13:17 Heart stents; jd3 - Immunization history:: Adult Immunizations unknown. - Social history:: Smoking status: unknown. Screenin:18 Abuse screen: Denies threats or abuse. Nutritional screening: No deficits noted. jd3 Tuberculosis screening: No symptoms or risk factors identified. Fall Risk Ambulatory Aid- None/Bed Rest/Nurse Assist (0 pts). Gait- Normal/Bed Rest/Wheelchair (0 pts) Mental Status- Oriented to own ability (0 pts). Total Deleon Fall Scale indicates No Risk (0-24 pts). Assessment: 13:19 General: Appears in no apparent distress. uncomfortable, Behavior is calm, cooperative, jd3 appropriate for age. Pain: Complains of pain in chest Pain does not radiate. Quality of pain is described as sharp, Pain began gradually. Neuro: Level of Consciousness is awake, alert, obeys commands, Oriented to person, place, time, situation. Cardiovascular: Reports chest pain, Heart tones S1 S2 present Capillary refill < 3 seconds Patient's skin is warm and dry. Respiratory: Reports shortness of breath at rest Airway is patent Respiratory effort is even, unlabored, Respiratory pattern is regular, symmetrical, Breath sounds are clear bilaterally. GI: No signs and/or symptoms were reported involving the gastrointestinal system. : No signs and/or symptoms were reported regarding the genitourinary system. EENT: No signs and/or symptoms were reported regarding the EENT system. Derm: Skin is intact, Skin is dry, Skin is normal, Skin temperature is warm. Musculoskeletal: Circulation, motion, and sensation intact. Range of motion: intact in all extremities. 13:39 Reassessment: Patient appears in no apparent distress at this time. Patient and/or jd3 family updated on plan of care and expected duration. Pain level reassessed. Patient is alert, oriented x 3, equal unlabored respirations, skin warm/dry/pink. pt reporting pain medication help a small amount, but continues to have some pain. 14:00 Reassessment: Patient appears in no apparent distress at this time. Patient and/or jd3 family updated on plan of care and expected duration. Pain level reassessed. Patient is alert, oriented x 3, equal unlabored respirations, skin warm/dry/pink. 15:00 Reassessment: Patient appears in no apparent distress at this time. Patient and/or jd3 family updated on plan of care and expected duration. Pain level reassessed. Patient is alert, oriented x 3, equal unlabored respirations, skin warm/dry/pink. 16:00 Reassessment: Patient appears in no apparent distress at this time. Patient and/or jd3 family updated on plan of care and expected duration. Pain level reassessed. Patient is alert, oriented x 3, equal unlabored respirations, skin warm/dry/pink. 17:05 Reassessment: Patient appears in no apparent distress at this time. Patient and/or jd3 family updated on plan of care and expected duration. Pain level reassessed. Patient is alert, oriented x 3, equal unlabored respirations, skin warm/dry/pink. 17:47 Reassessment: Patient appears in no apparent distress at this time. Patient and/or jd3 family updated on plan of care and expected duration. Pain level reassessed. Patient is alert, oriented x 3, equal unlabored respirations, skin warm/dry/pink. awaiting admission. 18:44 Reassessment: Patient appears in no apparent distress at this time. Patient and/or jd3 family updated on plan of care and expected duration. Pain level reassessed. Patient is alert, oriented x 3, equal unlabored respirations, skin warm/dry/pink. updated family on the phone. 19:59 Reassessment: Patient and/or family updated on plan of care and expected duration. Pain cr4 level reassessed. Patient is alert, oriented x 3, equal unlabored respirations, skin warm/dry/pink. Pain: Complains of pain in left chest Pain does not radiate. Quality of pain is described as sharp, Pain began gradually. 20:06 Reassessment: Patient and/or family updated on plan of care and expected duration. Pain ll2 level reassessed. Patient is alert, oriented x 3, equal unlabored respirations, skin warm/dry/pink. pt reports pain, admitting MD notified and verbal orders obtained. 21:42 Reassessment: Patient and/or family updated on plan of care and expected duration. Pain cr4 level reassessed. Patient is alert, oriented x 3, equal unlabored respirations, skin warm/dry/pink. Vital Signs: 13:14 BP 122 / 75; Pulse 74; Resp 17 S; Temp 97.7(TE); Pulse Ox 96% on R/A; Pain 10/10; jd3 13:38 BP 108 / 76; Pulse 77; Resp 20 S; Pulse Ox 94% on R/A; jd3 14:46 BP 109 / 73; Pulse 81; Resp 18 S; Pulse Ox 90% on R/A; jd3 14:46 Pulse Ox 96% on 2 lpm NC; jd3 16:00 BP 107 / 72; Pulse 74; Resp 20; Pulse Ox 95% ; rb3 17:04 BP 108 / 66; Pulse 75; Resp 17 S; Pulse Ox 96% on 2 lpm NC; jd3 17:48 BP 106 / 69; Pulse 77; Resp 15 S; Pulse Ox 95% on 2 lpm NC; jd3 18:44 BP 119 / 67; Pulse 80; Resp 17 S; Pulse Ox 95% on 2 lpm NC; jd3 19:30 BP 102 / 72; Pulse 78; Resp 16; Pulse Ox 93% ; Pain 5/10; cr4 21:40 BP 111 / 61; Pulse 82; Resp 16; Temp 98.6; Pain 0/10; cr4 ED Course: 12:30 Inserted saline lock: 20 gauge in right antecubital area, using aseptic technique. jd3 Blood collected. placed by [facility]. 12:41 Patient arrived in ED. as 12:41 Benji Clraos MD is Private Physician. as 12:41 Jovany Lai MD is Private Physician. as 12:45 Gustavo Rangel MD is Attending Physician. kdr 12:50 Demetrio Coronel, RN is Primary Nurse. jd3 13:06 XRAY Chest (1 view) In Process Unspecified. EDMS 13:18 Triage completed. jd3 13:18 Arm band placed on. EKG completed in triage. Results shown to MD. jd3 13:19 Patient has correct armband on for positive identification. Bed in low position. Call jd3 light in reach. Side rails up X 1. gang knife fish chopper on. Pulse ox on. NIBP on. 13:20 Patient maintains SpO2 saturation greater than 95% on room air. jd3 15:08 Moses Cordero MD is Hospitalizing Provider. kdr 20:28 Primary Nurse role handed off by Demetrio Coronel, STEPHEN mg2 20:41 Lexi Elizabeth, STEPHNE is Primary Nurse. cr4 Administered Medications: 13:11 Drug: Demerol - Meperidine 12.5 mg Route: IVP; Site: right antecubital; jd3 14:10 Follow up: Response: No adverse reaction; RASS: Alert and Calm (0) jd3 13:11 Drug: Zofran (Ondansetron) 4 mg Route: IVP; Site: right antecubital; jd3 14:00 Follow up: Response: No adverse reaction jd3 15:39 Drug: fentaNYL (PF) 50 mcg Route: IVP; Site: right antecubital; rb3 16:30 Follow up: Response: No adverse reaction; RASS: Alert and Calm (0) jd3 15:39 Drug: NS 0.9% 500 ml Route: IV; Rate: bolus; Site: right antecubital; rb3 16:30 Follow up: Response: No adverse reaction; IV Status: Completed infusion; IV Intake: jd3 500ml 15:40 Drug: Aspirin Chewable Tablet 324 mg Route: PO; rb3 16:40 Follow up: Response: No adverse reaction jd3 20:05 Drug: fentaNYL (PF) 25 mcg Route: IVP; Site: right antecubital; ll2 20:50 Follow up: Response: No adverse reaction; Pain is decreased cr4 Intake: 16:30 IV: 500ml; Total: 500ml. jd3 Outcome: 15:09 Decision to Hospitalize by Provider. kdr 20:26 Patient left the ED. ll2 02 06:46 Patient left the ED. cr4 Signatures: Dispatcher [employer] EDMS Gustavo Rangel MD MD kdr Martinez, Amelia as Ruiz, Claudia, RN RN cr4 Demetrio Coronel RN RN jd3 Maninder Valentin RN RN mg2 Sandy Adames RN RN ll2 Sheron King RN RN rb3 Corrections: (The following items were deleted from the chart) 11/27 13:39 13:14 BP 122 / 75; Pulse 74bpm; Resp 17bpm; Spontaneous; Pulse Ox 99% RA; Temp 97.7F jd3 Temporal; Pain 10/10; jd3 18:48 18:44 Pulse 80bpm; Resp 17bpm; Spontaneous; Pulse Ox 95% 2 lpm Nasal Cannula; jd3 jd3 19:57 19:54 Reassessment: Patient and/or family updated on plan of care and expected ll2 duration. Pain level reassessed. ll2 19:57 19:54 Pain: Complains of pain in left chest Pain currently is 5 out of 10 on a pain ll2 scale. Quality of pain is described as aching, ll2 19:58 19:30 BP 102 / 72; Pulse 77bpm; Resp 18bpm; Pulse Ox 94%; Temp 98.2F; Pain 5/10; ll2 ll2
--- NOTE | 2020-11-27 15:10 | EDPHYS ---
Physician Documentation [facility] Name: Anant Torres Age: 65 yrs Sex: Male : 1955 Arrival Date: 11/27/2020 Time: 12:41 Bed 13 Private MD: Jovany Lai S; [place], Frank ED Physician Gustavo Rangel HPI: 11/27 16:40 This 65 yrs old Male presents to ER via Wheelchair with complaints of Chest kdr Pain. 16:40 The patient or guardian reports chest pain that is located primarily in the substernal kdr area, anterior chest wall, left. Onset: suddenly, 1 week(s) ago, and became worse and became persistent today. The pain radiates to the left shoulder. Associated signs and symptoms: Pertinent positives: diaphoresis, nausea, shortness of breath. The chest pain is described as aching, burning, dull, a heaviness, a pressure. Duration: The patient or guardian reports multiple episodes, that are intermittent, that wax and wane, with no pattern, Became worse and persistent today - felt like someone was sitting on his chest. Modifying factors: The symptoms are alleviated by nothing. the symptoms are aggravated by activity, exertion. Severity of pain: At its worst the pain was moderate severe incapacitating just prior to arrival, in the emergency department the pain is unchanged. The patient has experienced similar episodes in the past, a few times, The patient was seen here mid October and admitted with unstable angina and subsequently had a stent placed. The pain today is similar to that experienced a few weeks ago in October. Historical: - Allergies: 13:17 Morphine; jd3 - PMHx: 13:17 COPD; Diabetes; heart disease; Hypertension; PTSD; Leukemia; jd3 - PSHx: 13:17 Heart stents; jd3 - Immunization history:: Adult Immunizations unknown. - Social history:: Smoking status: unknown. ROS: 16:40 Constitutional: Negative for fever, chills, and weight loss, Eyes: Negative for injury, kdr pain, redness, and discharge, ENT: Negative for injury, pain, and discharge, Neck: Negative for injury, pain, and swelling, Respiratory: Negative for shortness of breath, cough, wheezing, and pleuritic chest pain, Abdomen/GI: Negative for abdominal pain, nausea, vomiting, diarrhea, and constipation, Back: Negative for injury and pain, : Negative for injury, bleeding, discharge, and swelling, MS/Extremity: Negative for injury and deformity, Skin: Negative for injury, rash, and discoloration, Neuro: Negative for headache, weakness, numbness, tingling, and seizure activity. Psych: Negative for depression, anxiety, suicide ideation, homicidal ideation, and hallucinations, Allergy/Immunology: Negative for hives, rash, and allergies, Endocrine: Negative for neck swelling, polydipsia, polyuria, polyphagia, and marked weight changes, Hematologic/Lymphatic: Negative for swollen nodes, abnormal bleeding, and unusual bruising. 16:40 Cardiovascular: Positive for chest pain, Negative for edema, orthopnea, palpitations, paroxysmal nocturnal dyspnea. Exam: 16:40 Constitutional: This is a well developed, well nourished patient who is awake, alert, kdr and in moderate distress. Head/Face: Normocephalic, atraumatic. Eyes: Pupils equal round and reactive to light, extra-ocular motions intact. Lids and lashes normal. Conjunctiva and sclera are non-icteric and not injected. Cornea within normal limits. Periorbital areas with no swelling, redness, or edema. Neck: Trachea midline, no thyromegaly or masses palpated, and no cervical lymphadenopathy. Supple, full range of motion without nuchal rigidity, or vertebral point tenderness. No Meningismus. Chest/axilla: Normal chest wall appearance and motion. Nontender with no deformity. No lesions are appreciated. Cardiovascular: Regular rate and rhythm with a normal S1 and S2. No gallops, murmurs, or rubs. Normal PMI, no JVD. No pulse deficits. Respiratory: Lungs have equal breath sounds bilaterally, clear to auscultation and percussion. No rales, rhonchi or wheezes noted. No increased work of breathing, no retractions or nasal flaring. Abdomen/GI: Soft, non-tender, with normal bowel sounds. No distension or tympany. No guarding or rebound. No evidence of tenderness throughout. Back: No spinal tenderness. No costovertebral tenderness. Full range of motion. Skin: Warm, dry with normal turgor. Normal color with no rashes, no lesions, and no evidence of cellulitis. MS/ Extremity: Pulses equal, no cyanosis. Neurovascular intact. Full, normal range of motion. Neuro: Awake and alert, GCS 15, oriented to person, place, time, and situation. Cranial nerves II-XII grossly intact. Motor strength 5/5 in all extremities. Sensory grossly intact. Cerebellar exam normal. Normal gait. Psych: Awake, alert, with orientation to person, place and time. Behavior, mood, and affect are within normal limits. 17:37 ECG was reviewed by the Attending Physician. kdr Vital Signs: 13:14 BP 122 / 75; Pulse 74; Resp 17 S; Temp 97.7(TE); Pulse Ox 96% on R/A; Pain 10/10; jd3 13:38 BP 108 / 76; Pulse 77; Resp 20 S; Pulse Ox 94% on R/A; jd3 14:46 BP 109 / 73; Pulse 81; Resp 18 S; Pulse Ox 90% on R/A; jd3 14:46 Pulse Ox 96% on 2 lpm NC; jd3 16:00 BP 107 / 72; Pulse 74; Resp 20; Pulse Ox 95% ; rb3 17:04 BP 108 / 66; Pulse 75; Resp 17 S; Pulse Ox 96% on 2 lpm NC; jd3 17:48 BP 106 / 69; Pulse 77; Resp 15 S; Pulse Ox 95% on 2 lpm NC; jd3 18:44 BP 119 / 67; Pulse 80; Resp 17 S; Pulse Ox 95% on 2 lpm NC; jd3 19:30 BP 102 / 72; Pulse 78; Resp 16; Pulse Ox 93% ; Pain 5/10; cr4 21:40 BP 111 / 61; Pulse 82; Resp 16; Temp 98.6; Pain 0/10; cr4 MDM: 15:09 Patient medically screened. kdr 16:40 Differential diagnosis: acute myocardial infarction, anxiety, coronary artery disease kdr congestive heart failure. PALMER Risk Score: 1 - Three or more CAD risk factors, 1- Known CAD, 1 - Recent [<24hrs] Severe Angina, TOTAL SCORE = 3. Data reviewed: vital signs, nurses notes. Counseling: I had a detailed discussion with the patient and/or guardian regarding: the historical points, exam findings, and any diagnostic results supporting the discharge/admit diagnosis, lab results, radiology results, the need for further work-up and treatment in the hospital. 11/27 12:47 Order name: Basic Metabolic Panel [facility] 11/27 12:47 Order name: CBC with Diff kdr 11/27 12:47 Order name: LFT's kdr 11/27 12:47 Order name: Magnesium; Complete Time: 13:57 kdr 11/27 12:47 Order name: NT PRO-BNP; Complete Time: 13:57 kdr 11/27 12:47 Order name: PT-INR; Complete Time: 13:57 kdr 11/27 12:47 Order name: Troponin (emerg Dept Use Only); Complete Time: 13:57 kdr 11/27 12:48 Order name: Basic Metabolic Panel; Complete Time: 13:57 EDMS 11/27 12:48 Order name: CBC with Automated Diff; Complete Time: 13:57 EDMS 11/27 12:48 Order name: Liver (Hepatic) Function; Complete Time: 13:57 EDMS 11/27 13:08 Order name: Manual Differential; Complete Time: 13:57 EDMS 11/27 12:47 Order name: XRAY Chest (1 view); Complete Time: 13:57 [facility] 11/27 20:09 Order name: Glucose, Ancillary Testing EDFL 11/27 20:31 Order name: SARS-COV-2 RT PCR EDFL 11/28 00:29 Order name: Comprehensive Metabolic Panel EDFL 11/28 00:29 Order name: Comprehensive Metabolic Panel EDFL 11/28 00:29 Order name: Magnesium EDFL 11/28 00:29 Order name: Magnesium EDFL 11/28 00:29 Order name: Magnesium EDFL 11/28 00:29 Order name: Magnesium EDFL 11/28 00:29 Order name: Troponin I EDFL 11/28 00:29 Order name: Troponin I EDFL 11/28 00:29 Order name: Troponin I EDFL 11/28 00:29 Order name: Troponin I EDFL 11/28 00:29 Order name: Troponin I EDFL 11/27 12:47 Order name: EKG; Complete Time: 12:48 [facility] 11/27 12:47 Order name: Cardiac monitoring; Complete Time: 12:51 [facility] 11/27 12:47 Order name: EKG - Nurse/Tech; Complete Time: 12:51 [facility] 11/27 12:47 Order name: IV Saline Lock; Complete Time: 12:51 [facility] 11/27 12:47 Order name: Labs collected and sent; Complete Time: 12:51 kdr 11/27 12:47 Order name: O2 Per Protocol; Complete Time: 12:51 kdr 11/27 12:47 Order name: O2 Sat Monitoring; Complete Time: 12:51 kdr 11/28 00:29 Order name: CONS Pharmacy Consult EDMS 02 00:29 Order name: Consistent Carb (ADA) 1800 Xavi EDMS 11/28 00:45 Order name: CONS Physician Consult EDMS EC:37 Rate is 80 beats/min. Rhythm is regular, Sinus Rhythm with No ectopy. QRS [place] is kdr Normal. TN interval is normal. QRS interval is normal. QT interval is normal. Clinical impression: NSR w/ Non-specific ST/T Changes. Administered Medications: 13:11 Drug: Demerol - Meperidine 12.5 mg Route: IVP; Site: right antecubital; jd3 14:10 Follow up: Response: No adverse reaction; RASS: Alert and Calm (0) jd3 13:11 Drug: Zofran (Ondansetron) 4 mg Route: IVP; Site: right antecubital; jd3 14:00 Follow up: Response: No adverse reaction jd3 15:39 Drug: fentaNYL (PF) 50 mcg Route: IVP; Site: right antecubital; rb3 16:30 Follow up: Response: No adverse reaction; RASS: Alert and Calm (0) jd3 15:39 Drug: NS 0.9% 500 ml Route: IV; Rate: bolus; Site: right antecubital; rb3 16:30 Follow up: Response: No adverse reaction; IV Status: Completed infusion; IV Intake: jd3 500ml 15:40 Drug: Aspirin Chewable Tablet 324 mg Route: PO; rb3 16:40 Follow up: Response: No adverse reaction jd3 20:05 Drug: fentaNYL (PF) 25 mcg Route: IVP; Site: right antecubital; ll2 20:50 Follow up: Response: No adverse reaction; Pain is decreased cr4 Disposition: 11/27/20 15:09 Hospitalization ordered by Moses Cordero for Observation. Preliminary diagnosis are Unstable angina, Chest pain, unspecified. - Bed requested for Telemetry/MedSurg (observation). - Status is Observation. cr4 - Condition is Fair. - Problem is an acute exacerbation. - Symptoms have improved. Signatures: Dispatcher [employer] EDMS Cassy Barahona RN STEPHEN dw Gustavo Rangel MD MD [facility] Ceasar Mar, RN RN em Lexi Elizabeth, RN RN cr4 Demetrio Coronel, RN RN jd3 Sandy Adames RN RN ll2 Sheron King, RN RN rb3 Corrections: (The following items were deleted from the chart) 19:51 19:34 CORONAVIRUS+MR.LAB.BRZ ordered. EDMS EDMS 19:51 19:35 CORONAVIRUS+MR.LAB.BRZ ordered. EDFL EDMS 20:26 15:09 Hospitalization Ordered by Moses Cordero MD for Observation. Preliminary ll2 diagnosis is Unstable angina; Chest pain, unspecified. Bed requested for Telemetry/MedSurg (observation). Status is Observation. Condition is Fair. Problem is an acute exacerbation. Symptoms have improved. kdr 22:23 20:26 11/27/2020 15:09 Hospitalization Ordered by Moses Cordero MD for Observation. em Preliminary diagnosis is Unstable angina; Chest pain, unspecified. Bed requested for Telemetry/MedSurg (observation). Status is Observation. Condition is Fair. Problem is an acute exacerbation. Symptoms have improved. ll2 11/28 05:16 11/27 22:23 11/27/2020 15:09 Hospitalization Ordered by Moses Cordero MD for dw Observation. Preliminary diagnosis is Unstable angina; Chest pain, unspecified. Bed requested for [facility] ER HOLD. Status is Observation. Condition is Fair. Problem is an acute exacerbation. Symptoms have improved. em 11/28 06:46 05:16 11/27/2020 15:09 Hospitalization Ordered by Moses Cordero MD for Observation. cr4 Preliminary diagnosis is Unstable angina; Chest pain, unspecified. Bed requested for Telemetry/MedSurg (observation). Status is Observation. Condition is Fair. Problem is an acute exacerbation. Symptoms have improved. dw
[2020-11-27] MEDS ORDERED: ASPIRIN 81 MG CHEWABLE TABLET ONE (15:42)
[2020-11-27] MEDS ORDERED: FENTANYL CITR 100 MCG/2 ML ONE ×2 (15:43→20:15)
[2020-11-27] MEDS ORDERED: NA CHLORIDE 0.9% 500 ML ONE (15:43)
[2020-11-27] MEDS ORDERED: ACETAMINOPHEN 325 MG TABLET ONE (23:08)
[2020-11-28] MEDS ORDERED: HYDRALAZINE HCL 20 MG/ML VIAL IV PRN ×2 (00:23→00:44)
[2020-11-28] MEDS ORDERED: MORPHINE 2 MG/ML SYR IV PRN (00:23)
[2020-11-28] MEDS ORDERED: ALBUTEROL 2.5 MG/3 ML NEB SOL NEB PRN (00:26)
[2020-11-28] MEDS: NITROGLYCERIN 0.2 MG/HR (5 MG) PATCH TD SCH ×2 (00:44)
--- NOTE | 2020-11-28 00:51 | P.HP ---
Certification for Inpatient With expected LOS: >2 Midnights Patient will require the following post-hospital care: None Practitioner: I am a practitioner with admitting privileges, knowledge of patient current condition, hospital course, and medical plan of care. Services: Services provided to patient in accordance with Admission requirements found in Title 42 Section 412.3 of the Code of Federal Regulations Patient History Date of Service: 11/28/20 Reason for admission: chest pain History of Present Illness: 65 yr old male with HTN , HLD, CAD s/p 4 PCI with stents , last was 1 month ago , follows with cardiology service here -admitted for 2 days hx of chest pain , worse with activity , and present at rest , left sided and nonradiating -still pain 03/26 - noted with elevated wbc , denies nay fever -intial trop neg - being ruled out for ACS Allergies morphine Allergy (Verified 10/31/20 17:24) Itching/Hives/Rash Home Medications: Cyanocobalamin (Vitamin B-12) [Vitamin B-12] 1,000 mcg PO DAILY 11/01/20 Gabapentin 1 tab PO DAILY 11/01/20 Krill/Jbphh-3/Dha/Epa/Lipids [Jbphh-3 Krill Oil 500 mg Sfgl] 1 cap PO DAILY 11/01/20 Aspirin [Aspirin EC 81 MG] 81 mg PO DAILY #90 tablet.dr 11/03/20 Atorvastatin Calcium [Lipitor] 40 mg PO BEDTIME #30 tab 11/03/20 Insulin Glargine,Hum.rec.anlog [Lantus Solostar] 20 unit SQ BEDTIME #1 packet 11/03/20 Metoprolol Succinate 25 mg PO DAILY #30 tab.er.24h 11/03/20 - Past Medical/Surgical History Diabetic: Yes -: Coronary artery disease -: Type 2 diabetes -: COPD -: HTN -: PTSD -: PTSD -: Appendectomy -: Facial Sx -: Right leg- [place] -: Coronary artery stent placement - Social History Alcohol use: Yes CD- Drugs: No Caffeine use: Yes Review of Systems 10-point ROS is otherwise unremarkable Physical Examination - Vital Signs Temperature: 97.7 F Blood Pressure: 102/72 Pulse: 78 Respirations: 16 - Physical Exam General: Alert, In no apparent distress, Oriented x3 HEENT: Atraumatic, Normocephalic, PERRLA Neck: Supple, 2+ carotid pulse no bruit, JVD not distended Respiratory: Clear to auscultation bilaterally, Normal air movement, Diminished Cardiovascular: No edema, Regular rate/rhythm, Normal S1 S2 Gastrointestinal: Normal bowel sounds, Soft and benign, Non-distended Musculoskeletal: No clubbing, No swelling Neurological: Normal gait, Normal speech, Normal strength at 5/5 x4 extr - Studies Laboratory Data (last 24 hrs) 11/27/20 12:50: PT 11.6, INR 1.01 11/27/20 12:50: WBC 23.20 H*, Hgb 16.4, Hct 49.4 H, Plt Count 120 L 11/27/20 12:50: Sodium 135 L, Potassium 3.8, BUN 13, Creatinine 1.08, Glucose 236 H, Magnesium 1.7 L, Total Bilirubin 0.7, AST 26, ALT 53, Alkaline Phosphatase 199 H Assessment and Plan - Problems (Diagnosis) (1) CLL (chronic lymphocytic leukemia) Current Visit: No Status: Acute (2) Chest pain, rule out acute myocardial infarction Current Visit: No Status: Acute (3) DM2 (diabetes mellitus, type 2) Current Visit: No Status: Acute (4) Hypertension Current Visit: No Status: Acute (5) PTSD (post-traumatic stress disorder) Current Visit: No Status: Acute - Plan # CHEST PAIN - [facility] - follow serial sets of CE - cardiology consult -resume Beta adrian , aspirin and statins - place nitro patch now for pain relief # DM -resume insulin regime # HTN -controlled # DVT prop - sc heparin # Full code - Advance Directives Does patient have a Living Will: No Does patient have a Durable POA for Healthcare: No
[2020-11-28] MEDS: ACETAMINOPHEN 325 MG TABLET PO PRN ×2 (01:15→12:10)
[2020-11-28 01:39] LABS: Magnesium 1.9 mg/dL (1.8-2.4); Troponin I < 0.02 ng/mL (0.0-0.045)
[2020-11-28] MEDS ORDERED: HYDROCODONE/APAP 5/325 MG TAB PO ONE (01:45)
[2020-11-28] MEDS ORDERED: HYDROCODONE/APAP 5/325 MG TAB ONE (02:34)
[2020-11-28] MEDS ORDERED: NITROGLYCERIN 1 GM PKT TD ONE ×2 (02:47→03:17)
[2020-11-28] MEDS: HEPARIN 5000 UNIT/ML 1 ML VIAL SQ SCH ×3 (02:58→16:02)
[2020-11-28 04:02] VITALS: BMI 32.8
[2020-11-28] MEDS ORDERED: Magnesium Sulfate 2gm IVPB 2 G/50 ML BAG IV ONE (04:05)
[2020-11-28] MEDS: GABAPENTIN 400 MG CAP PO SCH ×2 (05:38→21:21)
[2020-11-28] MEDS: FAMOTIDINE 20 MG TAB PO SCH ×2 (08:40→21:21)
[2020-11-28] MEDS: ASPIRIN EC 81 MG TAB PO SCH (08:40)
[2020-11-28] MEDS: INSULIN -REGULAR HUMAN 50 UNIT/0.5 ML ML SQ SCH ×4 (08:41→21:21)
[2020-11-28] MEDS: CEFTRIAXONE/SWI 1gm 1 GM/10 ML SYR IV SCH (08:42)
[2020-11-28] MEDS: METOPROLOL XL 25 MG TAB PO SCH (08:45)
[2020-11-28] MEDS ORDERED: HOME MED 1 EA UNK (Gabapentin [Gabapentin] 800 MG Tablet) PO SCH (09:00)
[2020-11-28] MEDS ORDERED: CEFTRIAXONE 1 GM/NS 50 ML 1 GM/50 ML BAG IV SCH (09:00)
[2020-11-28] MEDS ORDERED: ASPIRIN EC 81 MG TAB PO SCH (09:00)
[2020-11-28] MEDS ORDERED: FENTANYL CITR 100 MCG/2 ML IV ONE (16:00)
[2020-11-28] MEDS ORDERED: ATORVASTATIN 40 MG TAB PO SCH (21:00)
[2020-11-28] MEDS ORDERED: INSULIN GLARGINE 100 UNITS/ML SQ SCH (21:00)
[2020-11-29] MEDS: HEPARIN 5000 UNIT/ML 1 ML VIAL SQ SCH ×2 (00:06→09:41)
[2020-11-29] MEDS ORDERED: Magnesium Sulfate 2gm IVPB 2 G/50 ML BAG IV ONE (00:23)
[2020-11-29 05:18] LABS: Albumin 3.8 g/dL (3.4-5.0); Bilirubin Total 0.5 mg/dL (0.2-1.0); Potassium 4.2 mmol/L (3.5-5.1); Protein, Total 7.8 g/dL (6.4-8.2)
[2020-11-29] MEDS: METOPROLOL XL 25 MG TAB PO SCH (09:39)
[2020-11-29] MEDS: GABAPENTIN 400 MG CAP PO SCH (09:39)
[2020-11-29] MEDS: ASPIRIN EC 81 MG TAB PO SCH (09:39)
[2020-11-29] MEDS: FAMOTIDINE 20 MG TAB PO SCH (09:47)
[2020-11-29] MEDS: INSULIN -REGULAR HUMAN 50 UNIT/0.5 ML ML SQ SCH ×2 (10:03→12:38)
--- NOTE | 2020-11-29 10:59 | P.PN ---
Subjective Date of Service: 11/28/20 Subjective: No new changes, No C/O voiced, Improving Review of Systems 10-point ROS is otherwise unremarkable Physical Examination - Vital Signs Temperature: 97.3 F Blood Pressure: 114/79 Pulse: 86 Respirations: 20 Pulse Ox (%): 97 - Physical Exam General: Alert, In no apparent distress, Oriented x3 Respiratory: Clear to auscultation bilaterally, Normal air movement Cardiovascular: Regular rate/rhythm, Normal S1 S2, No murmurs Gastrointestinal: Normal bowel sounds, Soft and benign, Non-distended, No tenderness Musculoskeletal: No clubbing, No swelling, No tenderness Neurological: Sensation intact, Cranial nerves 3-12 intact - Studies Laboratory Data (last 24 hrs) 11/29/20 04:22: Sodium 136, Potassium 4.2, BUN 15, Creatinine 0.94, Glucose 253 H, Total Bilirubin 0.5, AST 29, ALT 51, Alkaline Phosphatase 155 H 11/29/20 00:57: Magnesium 2.3 11/28/20 21:50: Troponin I < 0.02 11/28/20 13:24: Troponin I < 0.02 Medications List Reviewed: Yes Assessment & Plan - Problems (Diagnosis) (1) Chest pain, rule out acute myocardial infarction Current Visit: No Status: Acute (2) CLL (chronic lymphocytic leukemia) Current Visit: No Status: Acute (3) COPD (chronic obstructive pulmonary disease) Current Visit: No Status: Acute (4) DM2 (diabetes mellitus, type 2) Current Visit: No Status: Acute (5) Hypertension Current Visit: No Status: Acute (6) PTSD (post-traumatic stress disorder) Current Visit: No Status: Acute - Plan 1. Serial troponins and EKG 2. Appreciate Cardiology consultation 3. Outpt follow-up 4. Anti-platelet therapy, anti coagulation, beta-adrian, statin, and O2 as needed 5. IV morphine for pain 6. Nitro p.r.n. Discharge Plan: Home Plan to discharge in: Greater than 2 days - Advance Directives Does patient have a Living Will: No Does patient have a Durable POA for Healthcare: No - Code Status/Comfort Care Code Status Assessed: Yes Code Status: Full Code Critical Care: No Time Spent Managing PTS Care (In Minutes): 35
--- NOTE | 2020-11-29 11:01 | P.DS ---
Discharge Date: 11/29/20 Disposition: ROUTINE DISCHARGE Discharge Condition: GOOD Reason for Admission: chest pain Consultations: Cardiology - Problems (1) Chest pain, rule out acute myocardial infarction Status: Acute (2) CLL (chronic lymphocytic leukemia) Status: Acute (3) COPD (chronic obstructive pulmonary disease) Status: Acute (4) DM2 (diabetes mellitus, type 2) Status: Acute (5) Hypertension Status: Acute (6) PTSD (post-traumatic stress disorder) Status: Acute Brief History of Present Illness: Pt is a 65 yr old male with HTN , HLD, CAD s/p 4 PCI with stents , last was 1 month ago , follows with cardiology service here -admitted for 2 days hx of chest pain , worse with activity , and present at rest , left sided and non-radiating -still pain 10 -noted with elevated wbc , denies nay fever -trop neg x3 -being ruled out for ACS Hospital Course: Patient did well during hospital stay. Chest pain is stable. At this time patient is stable for discharge. Patient needs to follow with Cardiology as an outpatient. Advise strict blood sugar and blood pressure control. Also needs to continue with hematology follow-up for CLL. Vital Signs/Physical Exam: Temp Pulse Resp BP Pulse Ox 97.3 F 86 20 114/79 97 11/29/20 10:58 11/29/20 10:58 11/29/20 10:58 11/29/20 10:58 11/29/20 10:58 General: Alert, In no apparent distress, Oriented x3 Laboratory Data at Discharge: WBC 23.20 K/uL (4.3-10.9) H* 11/27/20 12:50 Hgb 16.4 g/dL (13.6-17.9) 11/27/20 12:50 Hct 49.4 % (39.6-49.0) H 11/27/20 12:50 Plt Count 120 K/uL (152-406) L 11/27/20 12:50 PT 11.6 SECONDS (9.5-12.5) 11/27/20 12:50 INR 1.01 11/27/20 12:50 Sodium 136 mmol/L (136-145) 11/29/20 04:22 Potassium 4.2 mmol/L (3.5-5.1) 11/29/20 04:22 BUN 15 mg/dL (7-18) 11/29/20 04:22 Creatinine 0.94 mg/dL (0.55-1.3) 11/29/20 04:22 Glucose 253 mg/dL (74-106) H 11/29/20 04:22 Magnesium 2.3 mg/dL (1.8-2.4) 11/29/20 00:57 Total Bilirubin 0.5 mg/dL (0.2-1.0) 11/29/20 04:22 AST 29 U/L (15-37) 11/29/20 04:22 ALT 51 U/L (12-78) 11/29/20 04:22 Alkaline Phosphatase 155 U/L (45-117) H 11/29/20 04:22 Troponin I < 0.02 ng/mL (0.0-0.045) 11/28/20 21:50 Home Medications: Cyanocobalamin (Vitamin B-12) [Vitamin B-12] 1,000 mcg PO DAILY 11/01/20 Gabapentin 1 tab PO BID 11/01/20 Krill/Barrett-3/Dha/Epa/Lipids [Barrett-3 Krill Oil 500 mg Sfgl] 1 cap PO DAILY 11/01/20 Aspirin [Aspirin EC 81 MG] 81 mg PO DAILY #90 tablet. 11/03/20 Insulin Glargine,Hum.rec.anlog [Lantus Solostar] 20 unit SQ BEDTIME #1 packet 11/03/20 Atorvastatin Calcium [Lipitor] 80 mg PO BEDTIME #30 tab 11/29/20 Famotidine [Pepcid*] 20 mg PO BID #60 tab 11/29/20 Isosorbide Mononitrate [Isosorbide Mononitrate ER] 30 mg PO DAILY #30 tab.er.24h 11/29/20 Metoprolol Succinate [Toprol Xl*] 50 mg PO DAILY #30 tab 11/29/20 Sitagliptin Phosphate [Januvia] 100 mg PO DAILY #30 tab 11/29/20 glipiZIDE [Glipizide] 10 mg PO BID #60 tablet 11/29/20 New Medications: glipiZIDE [Glipizide] 10 mg PO BID #60 tablet Isosorbide Mononitrate [Isosorbide Mononitrate ER] 30 mg PO DAILY #30 tab.er.24h Sitagliptin Phosphate [Januvia] 100 mg PO DAILY #30 tab Atorvastatin Calcium [Lipitor] 80 mg PO BEDTIME #30 tab Famotidine [Pepcid*] 20 mg PO BID #60 tab Metoprolol Succinate [Toprol Xl*] 50 mg PO DAILY #30 tab Physician Discharge Instructions: OK TO DC IV AND DC HOME FOLLOW-UP WITH PRIMARY CARE PROVIDER IN 1-2 WEEKS FOLLOW-UP WITH CARDIOLOGY in 1-2 weeks FOLLOW-UP WITH ONCOLOGY in 1-2 weeks RETURN TO THE ER IF symptoms worsen CALL or TEXT DR. TREADWELL AT [phone] IF ANY QUESTIONS REGARDING HOSPITAL STAY. PLEASE CALL THE FLOOR AT [phone] IF ANY MEDICATION OR NURSING QUESTIONS. Diet: AHA Activity: Fall precautions Followup: Jovany Lai MD [ACTIVE - CAN ADMIT] - Benji Claros MD [Primary Care Provider] - Time spent managing pt's care (in minutes): 35
[2020-11-29 12:11] VITALS: O2SAT 95
[2020-11-29] MEDS: CEFTRIAXONE/SWI 1gm 1 GM/10 ML SYR IV SCH (12:37)
--- NOTE | 2020-11-30 08:00 | EKG ---
Test Date: 2020-11-27 Test Time: 12:41:39 Core Sticker: SARAH MEASUREMENT RESULTS: Intervals: Rate: 80 CA: 170 QRSD: 98 QT: 414 QTc: 477 [place]: P: 49 CA: 170 QRS: 28 T: 59 INTERPRETIVE STATEMENTS: Normal sinus rhythm Possible Left atrial enlargement Low voltage QRS Inferior infarct, age undetermined Cannot rule out Anteroseptal infarct, age undetermined Abnormal ECG Compared to ECG 10/31/2020 12:53:10 Low QRS voltage now present Myocardial infarct finding still present Electronically Signed On 11-30-20 07:54:05 INSULATOR TESTER by Jovany Lai
--- NOTE | 2020-11-30 11:16 | CON ---
Reason For Consultation: Coronary artery disease and chest pain. History Of Present Illness: Mr. Torres is a 65-year-old white male. He is known to have coronary ar gloria disease. Recently had an RCA stent distally in October 2020. He has an old proximal LAD stent. He has an old LAD stent, all of which were open. He does have some diffuse coronary artery disease in the distal PDA posterolateral region that was treated medically. He came in with a white count o f 23,000, glucose of 234, atypical chest pain. No nausea, vomiting, diaphoresis, PND, orthopnea, ped al edema, palpitations, or syncope. He has already ruled out for an NM and he is pain-free now. Past Medical History: Include neuropathy, hypertension, dyslipidemia, diabetes, coronary artery dise ase status post stenting. Allergies: HE IS ALLERGIC TO MORPHINE. Medications: At home include fish oil, gabapentin, aspirin, Lipitor, insulin, and metoprolol. Physical Examination: General: When I saw him, he was pain free. Vital Signs: Stable, afebrile. HEENT: Negative. Neck: Supple with no bruit. Chest: Clear to auscultation and percussion. Cardiac: Revealed a regular rhythm and rate. No murmurs, gallops, or rubs. Abdomen: Benign. Extremities: Revealed no clubbing, cyanosis, or edema. Diagnostic Data: As stated earlier. EKG was nonspecific. Troponin is negative. BNP is negative. Impression And Plan: Stable angina, known coronary artery disease. I would put him on Imdur 30 mg d aily, increased his metoprolol from 25 daily to 50 b.i.d. We will consider re-cathing if his symptom s continue. He will see me in the office in the near future. His other problems including hypertens ion, dyslipidemia, diabetes, neuropathy are all stable. The patient can go home whenever it is okay with Dr. Cordero. I will see him in the office soon. FÁTIMA/CLIFFORD Voice ID: [id number] Report ID: [id number]
[2020-12-25 12:50] VITALS: BP 114/79; TEMP 97.3
== END 2020-11-29 14:26 | disposition home or self-care (01) | DRG 303 ==
LOC: ER 12:41 → ERHOLD 11-28 01:34 → 2ND 11-28 07:33 → OBSVTOIN 11-29 08:46
PROVIDERS: ADMIT Internal Medicine; ATTEND Hospitalist
DX: I25.110 Atherosclerotic heart disease of native coronary artery with unstable angina pectoris (principal); C91.10 Chronic lymphocytic leukemia of B-cell type not having achieved remission; J44.9 Chronic obstructive pulmonary disease, unspecified; I10 Essential (primary) hypertension; E11.40 Type 2 diabetes mellitus with diabetic neuropathy, unspecified; F43.10 Post-traumatic stress disorder, unspecified; E78.5 Hyperlipidemia, unspecified; Z95.5 Presence of coronary angioplasty implant and graft; Z79.82 Long term (current) use of aspirin; Z88.5 Allergy status to narcotic agent; Z90.49 Acquired absence of other specified parts of digestive tract; Z79.4 Long term (current) use of insulin; Z79.899 Other long term (current) drug therapy; Z20.822 Contact with and (suspected) exposure to COVID-19
CPT/HCPCS: 36415; 71045; 80048; 80053; 80076; 82947; 83735; 83880; 84484; 85025; 85610; 93005; 94760; 96361; 96374; 96375; 99285; J0696; J1644; J1815; J2175; J2405; J3010; J3475; J7040; U0003